=== PATIENT | female | born 1935 | race Caucasian/White ===

== ENCOUNTER → 2018-02-21 15:08 | Outpatient (CLI) | payer MEDICARE, SELFPAY ==
[2018-02-21 18:04] LABS: T4 Total, Thyroxin 4.9 ug/dL (4.8-13.9)
== END ==
PROVIDERS: Family Provider Family Medicine; PCP Family Medicine; Visit Provider Family Medicine
DX: E03.9 Hypothyroidism, unspecified (principal); I26.99 Other pulmonary embolism without acute cor pulmonale
CPT/HCPCS: 36415; 84436; 84443

== ENCOUNTER → 2018-03-26 15:15 | Outpatient (CLI) | payer MEDICARE, SELFPAY ==
[2018-03-26 17:54] LABS: ALB/GLOB Ratio 1.1 RATIO (0.9-2.4); AST(SGOT) 16 U/L (15-37); Alanine Aminotransfer ALT/SGPT 22 U/L (13-56); Albumin, Serum 3.5 g/dL (3.2-5.0); Alkaline Phosphatase 98 U/L (45-117); Anion Gap 7 (5-15); BUN 14 mg/dL (7-18); BUN/Creat Ratio 13.2 RATIO (10-20); Calcium,Total 8.4 mg/dL (8.5-10.1); Chloride 104 mmol/L (98-107); Creatinine, Serum 1.06 mg/dL (0.55-1.02); EST Glomerular Filtration Rate 53 mL/min (>60); Est Glom Filt Rate - Afr Amer 64 mL/min (>60); Globulin 3.3 g/dL (2.2-4.2); Glucose 84 mg/dL (74-106); Potassium 4.4 mmol/L (3.5-5.1); Protein, Total 6.8 g/dL (6.4-8.2); Sodium Level 139 mmol/L (136-145); Thyroid Stim Hormone (TSH) 0.06 uIU/mL (0.358-3.74)
[2018-03-26 17:57] LABS: Absolute Lymphocyte Count 1.35 X10^3/ul (0.83-4.51); Absolute Neutrophil Count 2.6 X10^3/uL (2.0-7.7); Basophil# 0.02 X10^3/uL; Basophil% 0.4 % (0-1); Eosinophil# 0.11 X10^3/uL; Eosinophils% 2.4 % (0-5); Hemoglobin 13.3 g/dl (12.0-15.0); Lymphocyte # 1.35 X10^3/ul (4.0); Mean Corp Hgb Conc 30.9 g/gl (32-36); Mean Corpuscular Volume 87.2 fL (81-99); Mean Platelet Vol. 10.8 fl (6.2-12.0); Monocyte# 0.37 X10^3/uL; Monocyte% 8.2 % (0-10); Neutrophil # 2.62 X10^3/uL (2.7-7.7); Neutrophil % 58.3 % (47-70); Platelet Count 241 K/mm3 (150-450); RBC Distribution Width CV 15.7 % (11.6-14.6); RBC Distribution Width SD 50.5 fl (35.1-43.9); Red Blood Count 4.93 M/mm3 (4.2-5.4); White Blood Count 4.5 K/mm3 (4.4-11.0)
[2018-03-26 18:24] LABS: POSITIVE COUNT NO; POSITIVE DIFFERENTIAL NO; POSITIVE MORPHOLOGY NO
== END ==
PROVIDERS: Family Provider Family Medicine; PCP Family Medicine; Visit Provider Family Medicine
DX: R06.09 Other forms of dyspnea (principal)
CPT/HCPCS: 36415; 80053; 84443; 85025

== ENCOUNTER → 2018-11-01 | Outpatient (CLI) | payer MEDICARE, SELFPAY ==
[2018-11-01 10:04] LABS: Absolute Lymphocyte Count 1.57 X10^3/ul (0.83-4.51); Absolute Neutrophil Count 3.5 X10^3/uL (2.0-7.7); Basophil# 0.03 X10^3/uL; Basophil% 0.5 % (0-1); Eosinophil# 0.14 X10^3/uL; Eosinophils% 2.5 % (0-5); Hematocrit 44.2 % (37-47); Hemoglobin 13.9 g/dl (12.0-15.0); Lymphocyte # 1.57 X10^3/ul (4.0); Lymphocyte % 27.9 % (19-41); Mean Corp Hgb Conc 31.4 g/gl (32-36); Mean Corpuscular Hgb 28.1 pg (27.0-32.0); Mean Corpuscular Volume 89.3 fL (81-99); Mean Platelet Vol. 9.8 fl (6.2-12.0); Monocyte# 0.35 X10^3/uL; Monocyte% 6.2 % (0-10); Neutrophil % 62.4 % (47-70); Platelet Count 192 K/mm3 (150-450); RBC Distribution Width CV 16.4 % (11.6-14.6); RBC Distribution Width SD 53.2 fl (35.1-43.9); Red Blood Count 4.95 M/mm3 (4.2-5.4); White Blood Count 5.6 K/mm3 (4.4-11.0)
[2018-11-01 10:35] LABS: POSITIVE COUNT NO; POSITIVE DIFFERENTIAL NO; POSITIVE MORPHOLOGY NO
[2018-11-01 10:40] LABS: Anion Gap 6 (5-15); BUN 27 mg/dL (7-18); BUN/Creat Ratio 17.5 RATIO (10-20); Calcium,Total 8.6 mg/dL (8.5-10.1); Chloride 100 mmol/L (98-107); Creatinine, Serum 1.54 mg/dL (0.55-1.02); EST Glomerular Filtration Rate 34 mL/min (>60); Est Glom Filt Rate - Afr Amer 41 mL/min (>60); Glucose 112 mg/dL (74-106); Potassium 4.4 mmol/L (3.5-5.1); Sodium Level 136 mmol/L (136-145); T4 Total, Thyroxin 9.6 ug/dL (4.8-13.9)
== END | disposition home or self-care (01) ==
PROVIDERS: Family Provider Family Medicine; PCP Family Medicine; Referring Provider Family Medicine; Visit Provider Family Medicine
DX: I50.9 Heart failure, unspecified (principal); E03.9 Hypothyroidism, unspecified
CPT/HCPCS: 36415; 80048; 84436; 84443; 85025

== ENCOUNTER → 2018-11-06 | Outpatient (CLI) | payer MEDICARE, SELFPAY ==
[2018-11-06 12:26] LABS: Thyroid Stim Hormone (TSH) 6.27 uIU/mL (0.358-3.74)
== END | disposition home or self-care (01) ==
LOC: MFPLAB 09:08
PROVIDERS: Family Provider Family Medicine; PCP Family Medicine; Referring Provider Family Medicine; Visit Provider Family Medicine
DX: E03.9 Hypothyroidism, unspecified (principal)
CPT/HCPCS: 36415; 84443

== ENCOUNTER → 2018-11-30 | Outpatient (CLI) | payer MEDICARE, SELFPAY ==
[2018-11-30 10:24] LABS: International Normalized Ratio 1.2; Prothrombin Time (Protime)PT. 14.5 SECONDS (11.7-14.9)
== END | disposition home or self-care (01) ==
LOC: MFPLAB 09:22
PROVIDERS: Family Provider Family Medicine; PCP Family Medicine; Referring Provider Family Medicine; Visit Provider Family Medicine
DX: I26.99 Other pulmonary embolism without acute cor pulmonale (principal)
CPT/HCPCS: 36415; 85610

== ENCOUNTER → 2019-03-08 | Outpatient (CLI) | payer MEDICARE, SELFPAY ==
[2019-03-08 10:16] LABS: Prothrombin Time (Protime)PT. 36.8 SECONDS (11.7-14.9)
[2019-03-08 10:23] LABS: International Normalized Ratio 3.7
== END | disposition home or self-care (01) ==
LOC: MFPLAB 08:42
PROVIDERS: Family Provider Family Medicine; PCP Family Medicine; Visit Provider Family Medicine
DX: I26.99 Other pulmonary embolism without acute cor pulmonale (principal)
CPT/HCPCS: 36415; 85610

== ENCOUNTER 2019-04-12 10:56 | Inpatient (IN) | payer MEDICARE, SELFPAY ==
[2019-04-12] VITALS (12 sets, daily range): BP systolic 89–138; BP diastolic 65–78; PULSE 92–130; RESP 17–34; TEMP 36.3–36.7; O2SAT 94–98; BMI 22.8; BMI 22.2
--- NOTE | 2019-04-12 11:44 | RAD_ITS ---
STUDY: X-RAY CHEST REASON FOR EXAM: Female, 83 years old. Shortness of breath. TECHNIQUE: PA and lateral views of the chest. COMPARISON: Comparison is made with prior examination dated January 12, 2016. FINDINGS: EKG electrodes are seen. Since prior examination, there has been improved aeration of the lung bases. Residual small bilateral pleural effusions with underlying atelectasis and/or infiltration worse on the left side. Mild degree of vascular congestion. Sternal cerclage wires and vascular clips are present from a prior sternotomy and coronary artery bypass graft procedure (CABG). Normal mediastinum and dalton. Normal visualized pulmonary arteries. There is atherosclerotic calcification of the aortic arch with tortuosity. There are degenerative changes of the visualized thoracic spine. Dextroscoliosis. Normal visualized ribs, clavicles, and shoulders. Small hiatal hernia. RAD/Chest PA and Lateral IMPRESSION: Blunting of both posterior triangles with the bibasilar atelectasis/infiltrates worse on the left side. These have improved since prior study. This is superimposed on mild degree of CHF. Electronically Signed: Arley Hernandez, at 13:19 EST , Service support ,
--- NOTE | 2019-04-12 11:44 | EKG12_ITS ---
Test Reason : SOB Blood Pressure : / mmHG Vent. Rate : 087 BPM Atrial Rate : 087 BPM P-R Int : 184 ms QRS Dur : 092 ms QT Int : 406 ms P-R-T Axes : 056 034 -23 degrees QTc Int : 488 ms Normal sinus rhythm Nonspecific ST- T changes Abnormal ECG Confirmed by BALJIT ROMERO, MATTHEW ([id number]), food editor LUIS GUADARRAMA ([id number]) on 04/14/2019 9:34:03 AM Referred By: Glendy Michelle Confirmed By:ANDRADE SMILEY MD
[2019-04-12 12:16] LABS: Absolute Lymphocyte Count 1.35 X10^3/uL (0.83-4.51); Absolute Neutrophil Count 3.8 X10^3/uL (2.0-7.7); Basophil# 0.03 X10^3/uL; Basophil% 0.5 % (0-1); Eosinophil# 0.07 X10^3/uL; Eosinophils% 1.2 % (0-5); Hemoglobin 12.6 g/dL (12.0-15.0); Lymphocyte # 1.35 X10^3/ul (4.0); Lymphocyte % 23.7 % (19-41); Mean Corp Hgb Conc 31.5 g/dL (32-36); Mean Corpuscular Hgb 27.3 pg (27.0-32.0); Mean Corpuscular Volume 86.6 fL (81-99); Monocyte# 0.37 X10^3/uL; Monocyte% 6.5 % (0-10); NRBC Flagged by Analyzer 0 % (0-5); Neutrophil # 3.84 X10^3/uL (2.7-7.7); Neutrophil % 67.6 % (47-70); Platelet Count 213 K/mm3 (150-450); RBC Distribution Width CV 14.6 % (11.6-14.6); RBC Distribution Width SD 45.6 fl (35.1-43.9); Red Blood Count 4.62 M/mm3 (4.2-5.4); White Blood Count 5.7 K/mm3 (4.4-11.0)
[2019-04-12 12:34] LABS: Anion Gap 10 (5-15); BUN 28 mg/dL (7-18); BUN/Creat Ratio 18.7 RATIO (10-20); Calcium,Total 8.6 mg/dL (8.5-10.1); Chloride 102 mmol/L (98-107); EST Glomerular Filtration Rate 35 mL/min (>60); Est Glom Filt Rate - Afr Amer 43 mL/min (>60); Estimated Creatinine Clearance 25.57 ml/min; Glucose 106 mg/dL (74-106); Potassium 3.7 mmol/L (3.5-5.1); Sodium Level 139 mmol/L (136-145)
[2019-04-12 12:37] LABS: International Normalized Ratio 8.9; Prothrombin Time (Protime)PT. 74.8 SECONDS (11.7-14.9)
--- NOTE | 2019-04-12 12:39 | ED.RN ---
LAB CALLED TO REPORT INR 8.9. DR. LEONEL MCQUEEN PRIMARY NURSE NOTIFIED.
[2019-04-12 12:43] LABS: BNP,B-Type NATRIURETIC PEPTIDE 2263.7 pg/mL (0-100)
--- NOTE | 2019-04-12 12:50 | ED.RN ---
lactic 2.[address] from [address] lab. dr clark aware
[2019-04-12 12:51] LABS: Lactic Acid 2.1 mmol/L (0.4-1.9)
[2019-04-12 16:12] LABS: Reflex Lactate? Y
[2019-04-12] MEDS: Furosemide 20 MG/2 ML VIAL IV (16:20)
--- NOTE | 2019-04-12 16:51 | ED.DCSUM_ITS ---
- ER Visit Summary Date of Service: 04/12/19 Chief Complaint: Shortness of breath History of Present Illness: The patient is a [address] Weathers. 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 She has shortness of breath began approximately 1 week ago. Severe with any ambulation. She denies any change with laying flat. She reports she is not short of breath now. She reports that she has chest pain with deep breaths only. She denies any chest pain with exertion. She does report that her legs have become very swollen over the course the past week as well. Patient also reports that she has had a cough for the past week is productive yellow sputum. She denies any fever or chills. She complains of generalized weakness. Physical Examination: Vitals: An 8.1, 106/69, 107, 34, 98% on room air which is not hypoxic. General: Well-nourished and well-developed. Head: Normocephalic atraumatic. Neck: Supple, no lymphadenopathy. No JVD. Nontender. Cardiovascular: Regular rate and rhythm. 4 out of 6 systolic murmur. Respiratory: No respiratory distress. Crackles at the bases bilaterally. Abdominal: Soft, nontender, nondistended, normal bowel sounds. No guarding, rebound, or peritoneal signs. Back: Nontender. Extremities: Nontender, 2+ pitting edema lower extremes bilaterally. Skin: Normal color, no rash. Neurologic: Alert and oriented ?3. Cranial nerves II through XII are intact. Normal strength and sensation. Psych: Normal affect. Test Results: EKG is sinus at [address] changes. She does have T wave inversion in lead II, V5 and V6. There is no old EKG for comparison. Troponin is negative. 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 INR is 8.9. Chem-7 is marked for BUN 28 creatinine 1.5. CBC is normal. Lactic acid is 2.1. Chest x-ray is read by the radiologist bibasilar atelectasis/infiltrates. Improved from prior study. Mild degree of CHF. In my opinion she has a left pleural effusion. There is atelectasis at the bases from this. She does not have an infiltrate. Emergency Department Course and Treatment: Patient was given a dose of Lasix IV. Her last echocardiogram was in 2013. Unfortunately her blood pressure has been on the low side so she cannot be aggressively diuresed. Treatment Plan: Patient was discussed with Dr. Todd and Dr. Michelle. She will be admitted to the hospital for further evaluation and treatment. Disposition: Admitted in serious condition. Impression: 1. CHF. 2. Pleural effusion on left. 3. Supratherapeutic INR. This note was generated with [employer] dictation software. It may contain incorrect words, spelling, and punctuation that were not noted in review of the chart prior to signing ED Disposition - Plan for ED Patient: Disposition: Acute Care Hospital [facility]
--- NOTE | 2019-04-12 16:58 | HP.PCM_ITS ---
History of Present Illness Date of Admission: 04/12/19 Chief Complaint: shrotness of breath, edema The patient is a 83 year old F with a past medical history as listed. She was admitted through the ED on 04/12/2019 with a complaint of shortness of breath and edema of her lower extremities which have been worsening for the past few days. She had assisted shortness of breath and orthopnea as well as PND. She admits to compliance with her Lasix. She denied any fever or chills, palpitations or dizziness, chest pain, abdominal pain, diarrhea vomiting. Review of systems is otherwise negative. The ED vitals were significant for heart rate of 107 on admission but had come down to 97 at time of review. Respiratory it was also 34 but had come down to 20 subsequently. She was saturating at 94% on room air. Chemistry was significant for creatinine of 1.5 and lactic acid of 2.1. BNP was 2263.7. Initial troponin was negative and CBC was unremarkable. Chest x-ray showed blunting of both posterior triangles with bibasilar atelectasis and infiltrates worse on the right side which have improved since prior study and also superimposed mild CHF. She has been admitted to be managed for acute exacerbation of heart failure. [] Past Medical History Allergies No Known Allergies Allergy (Verified 04/12/19 10:57) Home Medications: Ambulatory Orders Medication Instructions Recorded Acetaminophen [Tylenol Extra 500 mg PO DAILY PRN PRN 04/12/19 Strength] Furosemide [Lasix] 20 mg PO DAILY 04/12/19 Levothyroxine Sodium [Synthroid] 200 mcg PO DAILY 04/12/19 Warfarin Sodium 2 mg PO SUTUTHSA 04/12/19 Warfarin Sodium 3 mg PO MOWEFR 04/12/19 Surgical History: no surgical history Psychiatric History: No pertinent psych hx, Attn. deficit disorder SYSTEMS MECHANIC History: No pertinent SYSTEMS MECHANIC history Lives: Alone Smoking Status: Never smoker Tobacco Use: Non-smoker Alcohol: None Drugs: None - *Family History Maternal History Items: No pertinent history Paternal History Items: No pertinent history Review of Systems Constitutional: Denies: Chills, Fever, Malaise, Weakness, Weight Change Eyes: Reports: Blurred vision - has bilateral macular degeneration HEENT: Denies: Head Aches, Sinus Congestion, Sinus Drainage Cardiovascular: Reports: Edema, Orthopnea, Paroxysmal Noc. Dyspnea. Denies: Chest Pain, Palpitations Respiratory: Reports: Shortness of Breath, Shortness of breath at rest. Denies: Cough, Sputum production, Wheezing Gastrointestinal: Denies: Abdominal Pain, Nausea, Vomiting Genitourinary: Denies: Dysuria Musculoskeletal: Denies: Joint Pain, Joint Tenderness Skin: Denies: Rash, Wounds Neurological: Denies: Numbness, Tingling, Focal weakness Psychiatric: Denies: Anxiety, Depression, Homicidal Ideations, Suicidal Ideations Hematologic/ Lymphatic: Denies: Easy Bruising, Easy Bleeding VTE Information - Inpt Only VTE Present on Admission: No VTE Pharm Prophylaxis ordered?: Yes - Physical Exam Vitals/I&O's: Vital Signs Temp Pulse Resp BP Pulse Ox 98.1 F 96 27 H 89/73 L 94 04/12/19 12:29 04/12/19 16:14 04/12/19 16:14 04/12/19 16:14 04/12/19 16:14 Oxygen Delivery Method Room Air Weight: 133 lb 9.602 oz Body Mass Index (BMI) 22.2 General: Alert, Oriented x3, Cooperative, No apparent distress HEENT: Atraumatic, PERRLA, EOMI, Normocephalic Oral: Moist Mucosa Neck: Supple, No JVD, Negative Carotid Bruits Lungs: - - decreased breath sounds bibasally, no wheezes or crackles. Cardiovascular: Regular rate, Regular Rhythm, Normal S1, Normal S2, - - grade 3 ejection systolic murmur loudest at the aortic region. Abdomen: Bowel Sounds Present, Soft, Non Tender, Non-Distended, No Hepato- splenomegaly Extremities: No clubbing, No cyanosis, Edema - 1+ bipedal edema Skin: No rashes, No breakdown Musculoskeletal: No Tenderness to Palpation of Joints or Extremities Lymphatic: No Cervical, Supraclavicular, or Inguinal Adenopathy Neurological: Cranial nerves II-XII grossly intact, Neuro grossly intact, Motor Exam 5/5 strength throughout Psych/Mental Status: Normal Affect, Appropriate, Alert and oriented to time, place, person, mood and affect Laboratory Results 04/12/19 12:06: WBC 5.7, RBC 4.62, Hgb 12.6, Hct 40.0, MCV 86.6, MCH 27.3, MCHC 31.5 L, RDW Std Deviation 45.6 H, RDW Coeff of [place] 14.6, Plt Count 213, MPV 10.0, Immature Gran % (Auto) 0.500, Neut % (Auto) 67.6, Lymph % (Auto) 23.7, [place] % (Auto) 6.5, Eos % (Auto) 1.2, Baso % (Auto) 0.5, Absolute Neuts (auto) 3.8, Absolute Lymphs (auto) 1.35, Nucleated RBC % 0 04/12/19 12:06: Sodium 139, Potassium 3.7, Chloride 102, Carbon Dioxide 27.0, Anion Gap 10, BUN 28 H, Creatinine 1.50 H, Estim Creat Clear Calc 25.57, Est GFR (MDRD) Af Amer 43 L, Est GFR (MDRD) Non-Af 35 L, BUN/Creatinine Ratio 18.7, Glucose 106, Calcium 8.6, Troponin I 0.017 04/12/19 12:06: Lactic Acid 2.1 H* 04/12/19 12:06: B-Natriuretic Peptide 2263.7 H 04/12/19 12:06: PT 74.8 H, INR 8.9 H* Diagnostic Data Chest X-Ray 04/12/19 11:44 IMPRESSION: Blunting of both posterior triangles with the bibasilar atelectasis/infiltrates worse on the left side. These have improved since prior study. This is superimposed on mild degree of CHF. Electronically Signed: Arley Hernandez, at 13:19 EST , Service support , Current Medications Sodium Chloride () 10 - 40 ml IV UD PRN PRN Reason: SALINE FLUSH Assessment/Plan 83-year-old admitted with a complaint of shortness of breath. 1.; Acute exacerbation of heart failure with preserved EF * admit to PCu with telemetry * BNP is >2000 and chest xray shows blunting of both posterior triangles with bibasilar ateletasis and infiltrates worse on the left side, with superimposed mild CHF * initial troponin is negative. We will cycle. * Diuresed with IV Lasix 40 mg twice daily. * Fluid restriction to 1500 cc daily. * Monitor intake and output chart. * 2D echo(05/03/16); normal left ventricular size with false apical tendon and normal left ventricular systolic function with EF of 65% and no regional wall motion abnormalities noted. Left atrium severely enlarged. 3+ mitral valve insufficiency with aortic sclerosis and no stenosis as well as right ventricular systolic pressure of 47mmhg Transmitral diastolic flow velocity suggested diastolic dysfunction. * Get 2D echo. * 2. Aortic stenosis: * Has 3+ ejection systolic murmur loudest at the aortic region. * Will get 2D echo. Last echo was in 2013 which showed no evidence of aortic stenosis. * Pressure running in the 90s. Be careful with diuresis is prone to drop blood pressure. * consult cardiology once echo confirms severity of aortic stenosis * 3. Supratherapeutic INR: * INR is 8.9. On Coumadin. Unclear of indication for Coumadin; patient is not clear why she is taking coumadin. * Will hold Coumadin. Will give 5 mg of oral vitamin K. * check INR tomorrow; no evidence of bleeding. * 4. Hypothyroidism: On Synthroid. Prophylaxis: Not indicated as INR is supratherapeutic. Status: DNR CCA * Patient and family counseled extensively about different types of CODE STATUS including full code, DNR CCA and DNR CCA. Patient elects to be DNRCCA. Total [id number] time 16 minutes. . Code Visit Inpatient E&M: 87347 Init Hosp L3 Procedures: 19040 Advncd Care Plan 30 Min
[2019-04-12] MEDS: 0.9% Saline Lock 10 ML Syringe IV (17:55)
[2019-04-12] MEDS: Phytonadione (Vit K1) 5 MG TABLET PO (17:55)
[2019-04-12] MEDS: Furosemide 40 MG/4 ML Vial IV (17:55)
[2019-04-12 18:27] LABS: Lactic Acid 1.8 mmol/L (0.4-1.9)
[2019-04-13] VITALS (19 sets, daily range): BP systolic 90–103; BP diastolic 62–85; PULSE 88–137; RESP 20–30; TEMP 36.4–37.3; O2SAT 94–100
[2019-04-13 00:46] LABS: Bedside Glucose 114 mg/dL (70-110)
[2019-04-13] MEDS: Levothyroxine 100 MCG Tablet 200 MCG PO (05:52)
--- NOTE | 2019-04-13 05:55 | ECHOD_ITS ---
Reason For Study: CHF Procedure This was a 2D Doppler, Color Flow transthoracic echocardiogram. Exam performed portable in patient room. Left Ventricle Normal LV size. Concentric left ventricular hypertrophy. The estimated ejection fraction is 65-70 %. Unable to assess diastolic dysfunction. No regional wall motion abnormalities noted. Right Ventricle Mildly dilated right ventricle. Moderate global right ventricular systolic dysfunction. Atria The left atrium is severely enlarged. Normal right atrium. No doppler evidence for ASD. Mitral Valve There is severe mitral annular calcification. Moderate mitral valve prolapse, posterior leaflet. There is flail of the posterior leaflet of the mitral valve with possible rupture of the chordae. Mild-Moderate mitral valve stenosis. Severe (4+) mitral valve insufficiency. Tricuspid Valve There is no tricuspid stenosis. Mild tricuspid valve insufficiency. Pulmonary artery systolic pressure is 75 mmHg. Aortic Valve Trisinus/trileaflet aortic valve. Moderate diffuse aortic valve thickening. possible severe aortic stenosis by doppler. No aortic valve insufficiency. Pulmonic Valve There is no pulmonic valvular stenosis. Mild (1+) pulmonic valve insufficiency. Great Vessels Normal aortic root. Pericardium/Pleural No pericardial effusion. MMode/2D Measurements & Calculations LVIDd: 5.0 cm IVSd: 1.4 cm LVOT diam: 2.0 cm LVIDs: 2.8 cm LVPWd: 1.4 cm LVOT area: 3.2 cm2 RVDd: 4.8 cm FS: 43.4 % Ao root diam: 3.6 cm LAV(MOD-bp): 112.0 ml LVAd ap4: 27.1 cm2 LAV(MOD-bp) Indexed: 68.0 ml/m2 EDV(MOD-sp4): 82.9 ml LAV(MOD-sp2): 145.3 ml EDV(sp4-el): 87.7 ml LAV(MOD-sp4): 93.4 ml LVAs ap4: 14.9 cm2 ESV(MOD-sp4): 31.0 ml ESV(sp4-el): 30.9 ml EF(MOD-sp4): 62.5 % EF(sp4-el): 64.8 % SV(MOD-sp4): 51.8 ml SV(sp4-el): 56.8 ml Aortic Valve Planimetry: 0.73 cm2 LA A4 area: 28.8 cm2 LA dimension(2D): 6.1 cm RA A4 area: 13.5 cm2 Time Measurements MV dec time: 0.18 sec Doppler Measurements & Calculations MV E max marylu: 160.6 cm/sec MV V2 max: 214.7 cm/sec Ao V2 max: 435.1 cm/sec MV A max marylu: 81.7 cm/sec MV max P.5 mmHg Ao max P.1 mmHg MV E/A: 2.0 MV V2 mean: 107.6 cm/sec Ao V2 mean: 295.7 cm/sec MV mean P.8 mmHg Ao mean P.7 mmHg MV V2 VTI: 40.2 cm Ao V2 VTI: 79.4 cm MVA(VTI): 1.1 cm2 KAEL(I,D): 0.54 cm2 KAEL(V,D): 0.59 cm2 LV V1 max: 80.8 cm/sec SV(LVOT): 43.2 ml PA V2 max: 196.4 cm/sec LV V1 max P.6 mmHg LV V1 mean P.5 mmHg LV V1 mean: 57.4 cm/sec LV V1 VTI: 13.6 cm TR max marylu: 420.8 cm/sec MV P1/2t-pr_phl: 58.6 msec TR max P.6 mmHg Interpretation Summary The estimated ejection fraction is 65-70 %. Unable to assess diastolic dysfunction. Mildly dilated right ventricle. Moderate global right ventricular systolic dysfunction. The left atrium is severely enlarged. Mild-Moderate mitral valve stenosis. Severe (4+) mitral valve insufficiency. Moderate mitral valve prolapse, posterior leaflet There is flail of the posterior leaflet of the mitral valve with possible rupture of the chordae There is severe mitral annular calcification. Mild tricuspid valve insufficiency. Pulmonary artery systolic pressure is 75 mmHg. Moderate diffuse aortic valve thickening. possible severe aortic stenosis by doppler. Ordering Physician: Glendy Michelle Referring Physician: ELMER GLORIA Performed By: Sharon Fitzpatrick, YANELISCS, RVT
[2019-04-13 06:55] LABS: Bedside Glucose 119 mg/dL (70-110)
[2019-04-13 07:11] LABS: Absolute Lymphocyte Count 1.24 X10^3/uL (0.83-4.51); Basophil# 0.03 X10^3/uL; Basophil% 0.5 % (0-1); Eosinophil# 0.12 X10^3/uL; Eosinophils% 2.1 % (0-5); Hematocrit 40.8 % (37-47); Hemoglobin 12.9 g/dL (12.0-15.0); Lymphocyte # 1.24 X10^3/ul (4.0); Lymphocyte % 21.2 % (19-41); Mean Corp Hgb Conc 31.6 g/dL (32-36); Mean Corpuscular Hgb 27.3 pg (27.0-32.0); Mean Corpuscular Volume 86.3 fL (81-99); Mean Platelet Vol. 10.2 fl (6.2-12.0); Monocyte# 0.44 X10^3/uL; Monocyte% 7.5 % (0-10); NRBC Flagged by Analyzer 0 % (0-5); Neutrophil # 3.98 X10^3/uL (2.7-7.7); Neutrophil % 68.2 % (47-70); Platelet Count 223 K/mm3 (150-450); RBC Distribution Width CV 14.6 % (11.6-14.6); RBC Distribution Width SD 45.7 fl (35.1-43.9); Red Blood Count 4.73 M/mm3 (4.2-5.4); White Blood Count 5.8 K/mm3 (4.4-11.0)
[2019-04-13 07:23] LABS: International Normalized Ratio 3.4; Prothrombin Time (Protime)PT. 34.9 SECONDS (11.7-14.9)
[2019-04-13 07:27] LABS: Anion Gap 7 (5-15); BUN 29 mg/dL (7-18); Calcium,Total 8.2 mg/dL (8.5-10.1); Chloride 99 mmol/L (98-107); Creatinine, Serum 1.53 mg/dL (0.55-1.02); EST Glomerular Filtration Rate 34 mL/min (>60); Est Glom Filt Rate - Afr Amer 42 mL/min (>60); Estimated Creatinine Clearance 25.07 ml/min; Glucose 105 mg/dL (74-106); Potassium 3.2 mmol/L (3.5-5.1); Sodium Level 136 mmol/L (136-145)
[2019-04-13] MEDS: 0.9% Saline Lock 10 ML Syringe IV ×2 (07:44→18:14)
[2019-04-13 07:46] LABS: Magnesium 2.3 mg/dL (1.6-2.6); Thyroid Stim Hormone (TSH) 0.12 uIU/mL (0.358-3.74)
[2019-04-13 09:27] LABS: T4 Free Direct 2.58 ng/dL (0.76-1.46)
--- NOTE | 2019-04-13 10:47 | PN_ITS ---
Subjective: Patient seen and examined. Shortness of breath and lower extremity swelling improved. Patient denies current complaints. - Physical Exam Vitals/I&O's: Vital Signs Temp Pulse Resp BP Pulse Ox 97.6 F L 105 H 24 H 97/70 96 04/13/19 10:32 04/13/19 10:32 04/13/19 10:32 04/13/19 10:32 04/13/19 10:32 Oxygen Delivery Method Room Air Weight: 130 lb 1.164 oz Body Mass Index (BMI) 22.2 Intake and Output for Last 24 Hours 04/11/19 04/12/19 04/13/19 23:59 23:59 23:59 Intake Total 120 / 120 Output Total 1600 / 1600 Balance -1480 / -1480 General: Alert, Oriented x3, Cooperative HEENT: Atraumatic, PERRLA, EOMI, Normocephalic Neck: Supple, No JVD, Negative Carotid Bruits Lungs: Clear to auscultation, Diminished Cardiovascular: Regular rate, Regular Rhythm, Normal S1, Normal S2, Murmur Abdomen: Bowel Sounds Present, Soft, Non Tender, Non-Distended Extremities: No clubbing, No cyanosis, Edema - Bilateral lower extremity, nonpitting Skin: No rashes, No breakdown Musculoskeletal: No Tenderness to Palpation of Joints or Extremities Neurological: Cranial nerves II-XII grossly intact, Neuro grossly intact Psych/Mental Status: Normal Affect, Appropriate Laboratory Results 04/12/19 12:06: WBC 5.7, RBC 4.62, Hgb 12.6, Hct 40.0, MCV 86.6, MCH 27.3, MCHC 31.5 L, RDW Std Deviation 45.6 H, RDW Coeff of [place] 14.6, Plt Count 213, MPV 10.0, Immature Gran % (Auto) 0.500, Neut % (Auto) 67.6, Lymph % (Auto) 23.7, [place] % (Auto) 6.5, Eos % (Auto) 1.2, Baso % (Auto) 0.5, Absolute Neuts (auto) 3.8, Absolute Lymphs (auto) 1.35, Nucleated RBC % 0 04/12/19 12:06: Sodium 139, Potassium 3.7, Chloride 102, Carbon Dioxide 27.0, Anion Gap 10, BUN 28 H, Creatinine 1.50 H, Estim Creat Clear Calc 25.57, Est GFR (MDRD) Af Amer 43 L, Est GFR (MDRD) Non-Af 35 L, BUN/Creatinine Ratio 18.7, Glucose 106, Calcium 8.6, Troponin I 0.017 04/12/19 12:06: Lactic Acid 2.1 H* 04/12/19 12:06: B-Natriuretic Peptide 2263.7 H 04/12/19 12:06: PT 74.8 H, INR 8.9 H* 04/12/19 17:40: Lactic Acid 1.8 04/12/19 17:40: Troponin I 0.015 04/12/19 21:41: POC Glucose 114 H 04/12/19 23:35: Troponin I < 0.015 04/13/19 06:33: WBC 5.8, RBC 4.73, Hgb 12.9, Hct 40.8, MCV 86.3, MCH 27.3, MCHC 31.6 L, RDW Std Deviation 45.7 H, RDW Coeff of [place] 14.6, Plt Count 223, MPV 10.2, Immature Gran % (Auto) 0.500, Neut % (Auto) 68.2, Lymph % (Auto) 21.2, [place] % (Auto) 7.5, Eos % (Auto) 2.1, Baso % (Auto) 0.5, Absolute Neuts (auto) 4.0, Absolute Lymphs (auto) 1.24, Nucleated RBC % 0 04/13/19 06:33: Sodium 136, Potassium 3.2 L, Chloride 99, Carbon Dioxide 30.0, Anion Gap 7, BUN 29 H, Creatinine 1.53 H, Estim Creat Clear Calc 25.07, Est GFR (MDRD) Af Amer 42 L, Est GFR (MDRD) Non-Af 34 L, BUN/Creatinine Ratio 19.0, Glucose 105, Calcium 8.2 L 04/13/19 06:33: PT 34.9 H, INR 3.4 04/13/19 06:33: Magnesium 2.3, TSH 0.12 L 04/13/19 06:33: Free T4 2.58 H 04/13/19 06:40: POC Glucose 119 H Current Medications Acetaminophen (Tylenol) 500 mg PO DAILY PRN PRN PRN Reason: Pain Score 1-10/10 Albuterol Sulfate (Ventolin Aerosols) 2.5 mg INHALATION Q2H PRN PRN PRN Reason: SOB/Wheezing Dextrose (D50w Syringe) 0 gm IV X1 PRN; Protocol PRN Reason: Hypoglycemia Furosemide (Lasix) 40 mg IV BIDLX [facility] Last Admin: 04/13/19 10:45 Dose: Not Given Documented by: Glucagon () 1 mg IM .X1 PRN PRN Reason: Hypoglycemia Levothyroxine Sodium (Synthroid) 200 mcg PO DAILY@0600 [facility] Last Admin: 04/13/19 05:52 Dose: 200 mcg Documented by: Ondansetron HCl (Zofran) 4 mg IV Q8H PRN PRN PRN Reason: NAUSEA/VOMITING Sodium Chloride () 10 - 40 ml IV UD PRN PRN Reason: SALINE FLUSH Last Admin: 04/13/19 07:44 Dose: 10 ml Documented by: Medical Necessity - Tobacco Use Smoking Status: Never smoker Tobacco Use: Non-smoker Assessment/Plan 1. Acute diastolic CHF-BNP 2263. Chest x-ray demonstrates mild CHF. Oxygen stable on room air. IV Lasix 40 mg daily. Strict I&O. Daily weight. Prior echocardiogram April 2016 demonstrated an EF of 65%, moderate to severe mitral annular calcification. Repeat echo pending. Walking pulse ox prior to discharge. PT/OT. CM consult for discharge needs. 2. Supratherapeutic INR-INR 8.9 on admission. Vitamin K 5 mg p.o. x1. INR 3.4 today. It appears patient is taking Coumadin for history of PE however history and timeline of this is unclear. Will obtain records from PCP. 3. Hypothyroidism-TSH 0.12. Free T4 2.5. Reduce home Synthroid regimen from 200 mcg to 150 mcg daily. Recommend repeat lab in 4 to 6 weeks. DVT prophylaxis-Coumadin CODE STATUS: DNR CCA, no intubation. This patient was seen by ANAND Burns under the supervision of Dr. Pacheco.
--- NOTE | 2019-04-13 12:43 | NURSING ---
This nurse reviewed charting of SN Andressa
--- NOTE | 2019-04-13 12:46 | NURSING ---
pt. in bed with family in room. bed alarm is on. pt states they do not need anything. reported all of this to nurse and told her i am leaving the floor.
--- NOTE | 2019-04-13 16:05 | RAD_ITS ---
STUDY: X-RAY CHEST REASON FOR EXAM: Female, 83 years old. SOB TECHNIQUE: Single frontal view of the chest. COMPARISON: Prior day. FINDINGS: Cardiac silhouette unremarkable. Pulmonary vascularity unremarkable. Aorta unremarkable. Possible calcified pulmonary nodule right base. No focal consolidation. Interval improvement in left basilar opacity. Upper abdomen unremarkable. Osseous structures intact. No pneumothorax. RAD/Chest 1 View (Portable) IMPRESSION: Interval improvement in left basilar opacity. Persistent opacity likely represents a small effusion/atelectasis. Possible right basilar nodule. Further assessment with a chest CT if clinically indicated. Electronically Signed: Durga Murcia, at 18:38 EST Tel , Service support ,
[2019-04-13 16:41] LABS: Base Excess 4 mmol/L (-2 to +2); Bicarbonate 26.5 mmol/L (22-26); Blood Gas Specimen Type ART; O2 Delivery Device Room Air; PO2 59 mmHG (75-100); SITE L Brachial; SO2 93 % (95-99); Time Given 1640; Total Carbon Dioxide 27 mmol/L; pCO2 31.2 mmHg (35-45); pH 7.54 (7.35-7.45)
[2019-04-14 03:00] VITALS: PULSE 92
[2019-04-14 04:20] VITALS: BP 115/71; PULSE 91; RESP 18; TEMP 36.4; O2SAT 98
[2019-04-14] MEDS: Levothyroxine 150 MCG Tablet PO (05:48)
[2019-04-14 06:46] VITALS: PULSE 99
[2019-04-14 07:09] LABS: Absolute Lymphocyte Count 1.12 X10^3/uL (0.83-4.51); Absolute Neutrophil Count 4.4 X10^3/uL (2.0-7.7); Basophil# 0.03 X10^3/uL; Basophil% 0.5 % (0-1); Eosinophil# 0.09 X10^3/uL; Eosinophils% 1.5 % (0-5); Hematocrit 38.6 % (37-47); Hemoglobin 12.3 g/dL (12.0-15.0); Lymphocyte # 1.12 X10^3/ul (4.0); Lymphocyte % 18.5 % (19-41); Mean Corp Hgb Conc 31.9 g/dL (32-36); Mean Corpuscular Hgb 27.5 pg (27.0-32.0); Mean Corpuscular Volume 86.4 fL (81-99); Mean Platelet Vol. 10.2 fl (6.2-12.0); Monocyte# 0.41 X10^3/uL; Monocyte% 6.8 % (0-10); NRBC Flagged by Analyzer 0 % (0-5); Neutrophil # 4.37 X10^3/uL (2.7-7.7); Neutrophil % 72.4 % (47-70); Platelet Count 198 K/mm3 (150-450); RBC Distribution Width CV 14.4 % (11.6-14.6); RBC Distribution Width SD 44.6 fl (35.1-43.9); Red Blood Count 4.47 M/mm3 (4.2-5.4)
[2019-04-14 07:20] LABS: International Normalized Ratio 2.1; Prothrombin Time (Protime)PT. 23.9 SECONDS (11.7-14.9)
[2019-04-14 07:26] LABS: Anion Gap 5 (5-15); BUN 31 mg/dL (7-18); Calcium,Total 8.2 mg/dL (8.5-10.1); Chloride 102 mmol/L (98-107); Creatinine, Serum 1.35 mg/dL (0.55-1.02); EST Glomerular Filtration Rate 40 mL/min (>60); Est Glom Filt Rate - Afr Amer 48 mL/min (>60); Estimated Creatinine Clearance 28.41 ml/min; Glucose 109 mg/dL (74-106); Potassium 3.9 mmol/L (3.5-5.1); Sodium Level 137 mmol/L (136-145)
[2019-04-14 10:20] VITALS: BP 103/78; PULSE 102; RESP 20; TEMP 36.4; O2SAT 98
[2019-04-14] MEDS: Furosemide 20 MG Tablet PO (10:33)
[2019-04-14] MEDS: 0.9% Saline Lock 10 ML Syringe IV (10:34)
--- NOTE | 2019-04-14 11:48 | DCINST_ITS ---
- Discharge Diagnoses Current Active Problems: Acute diastolic CHF Supratherapeutic INR Severe aortic stenosis Hypothyroidism with iatrogenic hyperthyroidism You will use the following diet at home:: Cardiac Discharge Activity: Return to Normal Activity Call your doctor if you observe: Shortness of breath, Dizziness, Fainting spells, Chest pain Additional Instructions: He will need INR completed by primary care physician within 1 week. Report weight gain greater than 5 pounds or increased dyspnea, swelling to cardiology right away. [facility] and Home Health/PT/OT to be set up at discharge. Allergies/Adverse Reactions: Allergies No Known Allergies Allergy (Verified 04/12/19 10:57) Medications to take at Discharge Acetaminophen [Tylenol] 500 mg PO DAILY PRN PRN 04/12/19 Furosemide [Lasix] 20 mg PO DAILY 04/12/19 Levothyroxine [Synthroid] 150 mcg PO DAILY@0600 #30 tab 04/14/19 Warfarin [Coumadin] 2 mg PO DAILY@1700 #30 tab 04/14/19 The following prescriptions were given: Warfarin [Coumadin] 2 mg PO DAILY@1700 #30 tab Transmission Status: Pending to [id number] Levothyroxine [Synthroid] 150 mcg PO DAILY@0600 #30 tab Transmission Status: Pending to [id number] Primary Care Physician: Nancy Weathers MD [Primary Care Provider] - Please follow up with your Primary Care Physician in: 3-5 days Test Results: Test results from this visit will be discussed in further detail at your follow- up appointment, if applicable. Please Follow Up With: Chung Todd MD When: 1-2 Weeks, may see CLOTHES MODEL/PA Proposed Discharge Date: 04/14/19
--- NOTE | 2019-04-14 11:53 | PCM.DC.SUM ---
Discharge Date and Diagnosis Date of Admission: 04/12/19 Date of Discharge: 04/14/19 - Primary Discharge Diagnosis 1. Acute diastolic CHF 2. Severe aortic stenosis 3. Supratherapeutic INR 4. Hypothyroidism with iatrogenic hyperthyroidism 5. Chronic kidney disease stage III Hospital Course and Treatment Imaging Results: Diagnostic Data Chest X-Ray 04/13/19 16:05 IMPRESSION: Interval improvement in left basilar opacity. Persistent opacity likely represents a small effusion/atelectasis. Possible right basilar nodule. Further assessment with a chest CT if clinically indicated. Electronically Signed: Durga Divina, at 18:38 EST Tel , Service support , Dr. Todd- Cardiology Operations: None Procedures: 2-D Echocardiogram Summary of Care Provided: The patient is a 83 year old F admitted 04/12/2019 due to shortness of breath, edema. 1. Acute diastolic CHF-BNP 2263. Chest x-ray demonstrates mild CHF. Oxygen stable on room air. Prior echocardiogram April 2016 demonstrated an EF of 65%, moderate to severe mitral annular calcification. Repeat echo demonstrated EF 65 to 70%, severe aortic stenosis, PA pressure 75 mmHg, severe mitral valve insufficiency, moderate mitral valve prolapse, moderate global right ventricular systolic dysfunction. Walking pulse ox completed prior to discharge and patient did not require supplemental oxygen at rest or with ambulation. IV Lasix during admission. Discharge on Lasix 20 mg p.o. daily. Instructed patient if she has increased dyspnea, swelling or greater than 5 pound weight gain to notify cardiology immediately. Follow-up with primary care physician in 3 to 5 days. Follow-up with cardiology within 1 week. 2. Severe aortic stenosis-echocardiogram demonstrated EF 65 to 70%, severe aortic stenosis, PA pressure 75 mmHg, severe mitral valve insufficiency, moderate mitral valve prolapse, moderate global right ventricular systolic dysfunction. Cardiology consult prior to discharge, continue close outpatient follow-up. 3. Supratherapeutic INR-INR 8.9 on admission. P.o. vitamin K x1. INR at discharge 2.1. Patient unclear on home dosing of Coumadin. We will continue Coumadin 2 mg daily at discharge with repeat INR within 1 week, to be followed by primary care provider. After discussing with patient and daughter, it is still unclear why patient is on Coumadin. Daughter reports history of heart surgery complicated by PE. Unable to obtain PCP records as office not open over the weekend. Discussed with family discontinuing Coumadin however daughter is not agreeable to this. Given patient's severe macular degeneration and fall risk, feel this should be further evaluated as outpatient by PCP and cardiology. 4. Hypothyroidism with iatrogenic hyperthyroidism-TSH 0.12. Free T4 2.5. Reduce home Synthroid regimen from 200 mcg to 150 mcg daily. Recommend repeat lab in 4 to 6 weeks. 5. Chronic kidney disease stage III-at baseline. 6. Severe macular degeneration/poor eyesight-causes difficulty with medication administration. Plan to set up community care network and home health at discharge for assistance. General: Alert, Oriented x3, Cooperative HEENT: Atraumatic, PERRLA, EOMI, Normocephalic Neck: Supple, No JVD, Negative Carotid Bruits Lungs: Clear to auscultation, Diminished Cardiovascular: Regular rate, Regular Rhythm, Normal S1, Normal S2, Murmur Abdomen: Bowel Sounds Present, Soft, Non Tender, Non-Distended Extremities: No clubbing, No cyanosis, Edema - Bilateral lower extremity, nonpitting Skin: No rashes, No breakdown Musculoskeletal: No Tenderness to Palpation of Joints or Extremities Neurological: Cranial nerves II-XII grossly intact, Neuro grossly intact Psych/Mental Status: Normal Affect, Appropriate CODE STATUS: DNR CCA, no intubation. This patient was seen by ANAND Burns under the supervision of Dr. Pacheco. - Physical Exam Vitals/I&O's: Vital Signs Temp Pulse Resp BP Pulse Ox 97.5 F L 102 H 20 H 103/78 98 04/14/19 10:20 04/14/19 10:20 04/14/19 10:20 04/14/19 10:20 04/14/19 10:20 Oxygen Flow Rate (L/min) 2 Oxygen Delivery Method Nasal Cannula Weight: 132 lb 11.492 oz Body Mass Index (BMI) 22.2 Intake and Output for Last 24 Hours 04/12/19 04/13/19 04/14/19 23:59 23:59 23:59 Intake Total 120 / 120 830 / 830 120 / 120 Output Total 1600 / 1600 100 / 100 Balance -1480 / -1480 730 / 730 120 / 120 Laboratory Results 04/13/19 16:37: Specimen Type ART, Sample Site L Brachial, pH 7.54 H, Bicarbonate Actual 26.5 H, POC Total CO2 27, Base Excess 4 H, O2 Saturation 93 L, ABG pCO2 31.2 L, ABG pO2 59 L, Vance Test NA, O2 Delivery Device Room Air, Blood Gas Notified Whom RN, Blood Gas Notified Time 1640 04/14/19 06:45: WBC 6.0, RBC 4.47, Hgb 12.3, Hct 38.6, MCV 86.4, MCH 27.5, MCHC 31.9 L, RDW Std Deviation 44.6 H, RDW Coeff of [place] 14.4, Plt Count 198, MPV 10.2, Immature Gran % (Auto) 0.300, Neut % (Auto) 72.4 H, Lymph % (Auto) 18.5 L, [place] % (Auto) 6.8, Eos % (Auto) 1.5, Baso % (Auto) 0.5, Absolute Neuts (auto) 4.4, Absolute Lymphs (auto) 1.12, Nucleated RBC % 0 04/14/19 06:45: PT 23.9 H, INR 2.1 04/14/19 06:45: Sodium 137, Potassium 3.9, Chloride 102, Carbon Dioxide 30.0, Anion Gap 5, BUN 31 H, Creatinine 1.35 H, Estim Creat Clear Calc 28.41, Est GFR (MDRD) Af Amer 48 L, Est GFR (MDRD) Non-Af 40 L, BUN/Creatinine Ratio 23.0 H, Glucose 109 H, Calcium 8.2 L Current Medications Acetaminophen (Tylenol) 500 mg PO DAILY PRN PRN PRN Reason: Pain Score 1-10/10 Albuterol Sulfate (Ventolin Aerosols) 2.5 mg INHALATION Q2H PRN PRN PRN Reason: SOB/Wheezing Dextrose (D50w Syringe) 0 gm IV X1 PRN; Protocol PRN Reason: Hypoglycemia Furosemide (Lasix) 20 mg PO DAILY [facility] Last Admin: 04/14/19 10:33 Dose: 20 mg Documented by: Glucagon () 1 mg IM .X1 PRN PRN Reason: Hypoglycemia Levothyroxine Sodium (Synthroid) 150 mcg PO DAILY@0600 [facility] Last Admin: 04/14/19 05:48 Dose: 150 mcg Documented by: Ondansetron HCl (Zofran) 4 mg IV Q8H PRN PRN PRN Reason: NAUSEA/VOMITING Sodium Chloride () 10 - 40 ml IV UD PRN PRN Reason: SALINE FLUSH Last Admin: 04/14/19 10:34 Dose: 10 ml Documented by: Warfarin Sodium (Coumadin (Pbkc)) 2 mg PO DAILY@1700 OG Home Medications: Medications to take at Discharge Acetaminophen [Tylenol] 500 mg PO DAILY PRN PRN 04/12/19 Furosemide [Lasix] 20 mg PO DAILY 04/12/19 Levothyroxine [Synthroid] 150 mcg PO DAILY@0600 #30 tab 04/14/19 Warfarin [Coumadin] 2 mg PO DAILY@1700 #30 tab 04/14/19 Following Prescrptions Were Given to Patient: Warfarin [Coumadin] 2 mg PO DAILY@1700 #30 tab Transmission Status: Pending to [id number] Levothyroxine [Synthroid] 150 mcg PO DAILY@0600 #30 tab Transmission Status: Pending to [id number] Primary Care Physician: Nancy Weathers MD [Primary Care Provider] - Please follow up with your Primary Care Physician in: 3-5 days Please Follow Up With: Chung Todd MD When: 1-2 Weeks, may see HAND STAPLER/PA Disposition: Home with Home Health Minutes spent on discharge:: 35 Patient Condition:: Stable Medical Necessity - Tobacco Use Smoking Status: Never smoker Tobacco Use: Non-smoker Meaningful Use Info Meaningful Use Diagnoses (Choose all that apply): CHF - CHF LAVON/ARB ordered at discharge?: No Reason LAVON/ARB not ordered?: Severe aortic stenosis Documented LVEF (%): 65
--- NOTE | 2019-04-14 15:31 | CON.PCM_ITS ---
Reason for Consult Date of Consultation: 04/14/19 Reason for Consultation: Attic stenosis, mitral regurgitation, congestive heart failure History of Present Illness: The patient is a 83 year old F with a past medical history as listed. She was admitted through the ED on 04/12/2019 with a complaint of shortness of breath and edema of her lower extremities which have been worsening for the past few days. She had assisted shortness of breath and orthopnea as well as PND. Patient was supposed to be on Lasix at home but is unclear how much she was taking and if she was compliant. She was started on Lasix in the hospital and responded very well to that. She says her breathing is back to her baseline. Review of systems: All else is negative except that in the HPI. All systems reviewed. Past Medical History Allergies/Adverse Reactions: Allergies No Known Allergies Allergy (Verified 04/12/19 10:57) Home Medications: Ambulatory Orders Medication Instructions Recorded Acetaminophen [Tylenol] 500 mg PO DAILY PRN PRN 04/12/19 Furosemide [Lasix] 20 mg PO DAILY 04/12/19 Levothyroxine [Synthroid] 150 mcg PO DAILY@0600 #30 tab 04/14/19 Warfarin [Coumadin] 2 mg PO DAILY@1700 #30 tab 04/14/19 Surgical History: no surgical history Psychiatric History: No pertinent psych hx, Attn. deficit disorder [employer] History: No pertinent [employer] history - *Family History Maternal History Items: No pertinent history Paternal History Items: No pertinent history Lives: Alone Smoking Status: Never smoker Tobacco Use: Non-smoker Alcohol: None Drugs: None Objective: Vital Signs Temp Pulse Resp BP Pulse Ox 97.5 F L 102 H 20 H 103/78 98 04/14/19 10:20 04/14/19 10:20 04/14/19 10:20 04/14/19 10:20 04/14/19 10:20 Oxygen Flow Rate (L/min) 2 Oxygen Delivery Method Nasal Cannula Weight: 132 lb 11.492 oz Body Mass Index (BMI) 22.2 Intake and Output for Last 24 Hours 04/12/19 04/13/19 04/14/19 23:59 23:59 23:59 Intake Total 120 / 120 830 / 830 360 / 360 Output Total 1600 / 1600 100 / 100 100 / 100 Balance -1480 / -1480 730 / 730 260 / 260 General: Awake, Alert, Oriented x 3 Oral: Moist Mucosa Neck: Supple Lungs: Clear to auscultation Cardiovascular: Regular Rhythm Abdomen: Soft - Pansystolic murmur heard throughout the precordium. Extremities: No edema Skin: No Rashes Psych/Mental Status: Appropriate 04/13/19 16:37: pH 7.54 H, Bicarbonate Actual 26.5 H, POC Total CO2 27, Base Excess 4 H, O2 Saturation 93 L, ABG pCO2 31.2 L, ABG pO2 59 L, Vance Test NA 04/14/19 06:45: WBC 6.0, RBC 4.47, Hgb 12.3, Hct 38.6, MCV 86.4, MCH 27.5, MCHC 31.9 L, Plt Count 198, MPV 10.2, Immature Gran % (Auto) 0.300, Neut % (Auto) 72.4 H, Lymph % (Auto) 18.5 L, [place] % (Auto) 6.8, Eos % (Auto) 1.5, Baso % (Auto) 0.5, Absolute Neuts (auto) 4.4, Nucleated RBC % 0 04/14/19 06:45: PT 23.9 H, INR 2.1 04/14/19 06:45: Sodium 137, Potassium 3.9, Chloride 102, Carbon Dioxide 30.0, Anion Gap 5, BUN 31 H, Creatinine 1.35 H, Est GFR (MDRD) Af Amer 48 L, Est GFR (MDRD) Non-Af 40 L, BUN/Creatinine Ratio 23.0 H, Glucose 109 H, Calcium 8.2 L Rhythm: EKG: ECHO: Stress Test: Cardiac Cath: PCI: CT Surgery: Holter monitor: EPS: PPM: CXR: Chest CT Scan: Assessment/Plan 1. CHF: Patient has responded well to current medications. It is unclear what she was taking at home. It will be reasonable to discharge the patient home on current regimen. He has preserved EF. Her CHF is likely from her valve disorders. 2. Severe aortic stenosis: Patient will likely need AVR probably TAVR. Discussed this with the patient. She will think about it and let us know when she follows up with us in the office. 3. Severe mitral regurgitation: She will need referral to a tertiary center for this as well. If patient is willing to consider surgical options or percutaneous options then we will likely proceed with coronary angiography and then refer her to [facility] for evaluation.
--- NOTE | 2019-04-15 09:29 | CASEMGMT ---
Call to Natalie at [facility] and she is aware of referral from the weekend and states will call daughter, Patrica, to set up [facility]. A referral was also sent for CCN previously and Bryant at [facility] is aware of referral at this time, voices understanding. Jamshid MUHAMMAD CM
== END 2019-04-14 14:50 | disposition home or self-care (01) | DRG 293 ==
LOC: ED 12:00 → PCU 16:34
PROVIDERS: Admitting Provider Student in an Organized Health Care Education/Training Program; Emergency Provider Emergency Medicine; Family Provider Family Medicine; PCP Family Medicine; Referring Provider Student in an Organized Health Care Education/Training Program; Visit Provider Family Medicine
DX: I50.33 Acute on chronic diastolic (congestive) heart failure (principal); R79.1 Abnormal coagulation profile; Z79.01 Long term (current) use of anticoagulants; E03.9 Hypothyroidism, unspecified; Z66 Do not resuscitate; E87.6 Hypokalemia; I08.0 Rheumatic disorders of both mitral and aortic valves; N18.3 Chronic kidney disease, stage 3 (moderate); H35.30 Unspecified macular degeneration
CPT/HCPCS: 36415; 36600; 71045; 71046; 80048; 82803; 82962; 83605; 83735; 83880; 84439; 84443; 84484; 85025; 85610; 87040; 93005; 93306; 97161; 97165; 97802; 99285; J7050; A4216; J1940

== ENCOUNTER 2019-04-25 14:45 | Inpatient (IN) | payer MEDICARE, SELFPAY ==
[2019-04-12 16:49] VITALS: BMI 22.2
[2019-04-25] VITALS (15 sets, daily range): BP systolic 92–132; BP diastolic 57–79; PULSE 99–121; RESP 18–37; TEMP 36.4–37.4; O2SAT 92–99; BMI 21.4; BMI 21.7
--- NOTE | 2019-04-25 15:04 | RAD_ITS ---
STUDY: X-RAY CHEST REASON FOR EXAM: Female, 83 years old. Cough and shortness of breath. TECHNIQUE: Single AP portable view of the chest. COMPARISON: Comparison is made with prior examination dated April 13, 2019. FINDINGS: EKG electrodes are seen. Increased markings at the lung bases likely worse on the left side. This has improved as compared to prior study. There is no demonstrated pleural abnormality. Sternal cerclage wires and vascular clips are present from a prior sternotomy and coronary artery bypass graft procedure (CABG). Moderate cardiomegaly. Normal mediastinum and dalton. Normal visualized pulmonary arteries. There is atherosclerotic calcification of the aortic arch with tortuosity. There is a dextroscoliosis of the thoracic spine. Normal visualized ribs, clavicles, and shoulders. There is no demonstrated abnormality of the visualized soft tissue structures of the upper abdomen. RAD/Chest 1 View (Portable) IMPRESSION: Since prior study, there has been progressive clearing of the left lower lobe atelectasis and/or infiltrate. Electronically Signed: Arley Hernandez, at 15:40 EST , Service support ,
--- NOTE | 2019-04-25 15:04 | EKG12_ITS ---
Test Reason : SOB Blood Pressure : / mmHG Vent. Rate : 111 BPM Atrial Rate : 111 BPM P-R Int : 170 ms QRS Dur : 090 ms QT Int : 344 ms P-R-T Axes : 063 002 026 degrees QTc Int : 467 ms Sinus tachycardia Possible Left atrial enlargement Borderline ECG Confirmed by MIKE ROMERO, ALON ([id number]), publication editor KESHIA HUFFMAN ([id number]) on 04/29/2019 11:31:39 AM Referred By: YEN Confirmed By:ALON MCKEON MD
--- NOTE | 2019-04-25 15:05 | VDLE_ITS ---
Reason For Study: Pain RIGHT LEFT GSV is normal. CFV is compressible, spontaneous, phasic, CFV is compressible, spontaneous, phasic, competent, and demonstrates normal competent and demonstrates normal augmentation. augmentation. FV is compressible, spontaneous, phasic, FV is compressible, spontaneous, phasic, competent and demonstrates normal competent and demonstrates normal augmentation. augmentation. POP V is compressible, spontaneous, phasic, POP V is compressible, spontaneous, phasic, competent and demonstrates normal competent and demonstrates normal augmentation. augmentation. T/P Trunk is compressible. T/P Trunk is compressible. PTV is compressible. PTV is compressible. LT PerV is compressible. RT PerV is compressible. Acute deep vein thrombosis is noted in the Acute deep vein thrombosis is noted in the left soleus vein. right soleus vein. Left GSV previously harvested. Procedure Exam performed portable in ED. A preliminary report was called and/or faxed to [facility]. Interpretation Summary Acute deep vein thrombosis is noted in the right soleus vein. The remainder of the right lower extremity deep venous system is patent and compressible. Acute deep vein thrombosis is noted in the left soleus vein. The remainder of the left lower extremity deep venous system is patent and compressible. Valvular competence appears intact within the proximal deep venous systems bilaterally. The right great saphenous vein appears patent and compressible segmentally. The left great saphenous vein is absent, having been previously harvested. Ordering Physician: Caryn Moss Referring Physician: Nancy Weathers M.D. Performed By: Flower Trejo RVT
--- NOTE | 2019-04-25 15:07 | ED.VISSUMM ---
- ER Visit Summary Date of Service: 04/25/19 Chief Complaint: Shortness of breath History of Present Illness: The patient is a 83 F presenting with shortness of breath. Patient has had a cough and increasing shortness of breath over the past week. She has had subjective fever at home. She has had decreased appetite. Shortness of breath is worsened with exertion. She denies chest pain. She was recently admitted from 04/12-04/15 for CHF exacerbation. Her daughter states when she left the hospital her lower extremity swelling was under control. She now has increasing lower extremity swelling. Her Lasix was increased last week and she was started on Aldactone on Monday. She has been seen by home health and they sent her to the ED today for further evaluation. Echocardiogram 04/13/2019 showed estimated EF 65 to 70%. Severe mitral valve insufficiency, possible severe aortic stenosis. Physical Examination: Vitals are stable. Patient is afebrile. Alert no acute distress. HEENT exam is unremarkable. Neck is supple. Lungs are rhonchi bilaterally. Heart is regular and tachycardic, systolic murmur Abdomen is soft nontender nondistended. Extremities left greater than right edema. No erythema or warmth. Normal distal pulses. Skin is warm and dry. No focal neurologic deficit. Remainder of exam is unremarkable. Emergency Department Course and Treatment: Chest x-ray shows since prior study, there has been progressive clearing of the left lower lobe atelectasis and/or infiltrate. EKG is sinus tachycardia rate of 111. CBC unremarkable. Chemistries show sodium 134, glucose 126, BUN 32, creatinine 1.49. Troponin 0.039. INR 3.5. BNP 2955.6. Influenza negative. With ambulation patient became very dyspneic. CTA chest was not ordered at this time due to increasing creatinine and therapeutic INR. Discussed with the hospitalist for admission. Disposition: Admission Impression: CHF exacerbation, URI, bilateral lower extremity DVT This note was generated with [employer] dictation software. It may contain incorrect words, spelling, and punctuation that were not noted in review of the chart prior to signing ED Disposition - Plan for ED Patient: Referrals: Nancy Weathers MD [Primary Care Provider] -
[2019-04-25 15:27] LABS: Absolute Lymphocyte Count 1.56 X10^3/uL (0.83-4.51); Absolute Neutrophil Count 4.4 X10^3/uL (2.0-7.7); Basophil# 0.02 X10^3/uL; Basophil% 0.3 % (0-1); Eosinophil# 0.08 X10^3/uL; Eosinophils% 1.2 % (0-5); Hematocrit 40.6 % (37-47); Hemoglobin 12.5 g/dL (12.0-15.0); Lymphocyte # 1.56 X10^3/ul (4.0); Lymphocyte % 23.5 % (19-41); Mean Corp Hgb Conc 30.8 g/dL (32-36); Mean Corpuscular Hgb 26.2 pg (27.0-32.0); Mean Corpuscular Volume 85.1 fL (81-99); Mean Platelet Vol. 9.9 fl (6.2-12.0); Monocyte# 0.53 X10^3/uL; NRBC Flagged by Analyzer 0 % (0-5); Neutrophil # 4.42 X10^3/uL (2.7-7.7); Neutrophil % 66.5 % (47-70); POSITIVE MORPHOLOGY YES; Platelet Count 229 K/mm3 (150-450); RBC Distribution Width CV 14.9 % (11.6-14.6); RBC Distribution Width SD 46.2 fl (35.1-43.9); Red Blood Count 4.77 M/mm3 (4.2-5.4); White Blood Count 6.6 K/mm3 (4.4-11.0)
[2019-04-25 15:29] LABS: Differential Indicated SCAN CRITERIA MET
[2019-04-25 15:42] LABS: Anion Gap 3 (5-15); BUN 32 mg/dL (7-18); BUN/Creat Ratio 21.5 RATIO (10-20); Calcium,Total 8.4 mg/dL (8.5-10.1); Chloride 96 mmol/L (98-107); Creatinine, Serum 1.49 mg/dL (0.55-1.02); EST Glomerular Filtration Rate 36 mL/min (>60); Est Glom Filt Rate - Afr Amer 43 mL/min (>60); Estimated Creatinine Clearance 25.74 ml/min; Glucose 126 mg/dL (74-106); Potassium 3.7 mmol/L (3.5-5.1); Sodium Level 134 mmol/L (136-145)
[2019-04-25 15:46] LABS: Prothrombin Time (Protime)PT. 35.2 SECONDS (11.7-14.9)
[2019-04-25 15:57] LABS: BNP,B-Type NATRIURETIC PEPTIDE 2955.6 pg/mL (0-100)
[2019-04-25 16:01] LABS: International Normalized Ratio 3.5
--- NOTE | 2019-04-25 16:02 | ED.RN ---
lab called pt 35.[address] shook
[2019-04-25 16:17] LABS: Ovalocyte 1+; Red Cell Morphology N CHROM NORMAL (NORM C&C)
[2019-04-25 16:22] LABS: Platelet Estimate ADEQUATE (ADEQ)
--- NOTE | 2019-04-25 16:39 | PCM.HP.STD ---
<Stacie Carvajal - Last Filed: 04/25/19 17:48> Problem List (1) Severe aortic stenosis Status: Chronic (2) Diastolic CHF Status: Chronic Qualifiers: Heart failure chronicity: acute on chronic Qualified Code(s): I50.33 - Acute on chronic diastolic (congestive) heart failure (3) Chronic kidney disease, stage 3 Status: Chronic (4) Macular degeneration Status: Chronic (5) Hypothyroidism Status: Chronic History of Present Illness Date of Admission: 04/25/19 Chief Complaint: Shortness of breath, cough, increased lower extremity swelling. The patient is a 83 year old F who presents to the emergency room with 1 week history of increasing shortness of breath, lower extremity swelling, productive cough and fever. Patient was recently discharged 04/15/2019 following admission for acute diastolic CHF. Patient reports she felt well at discharge however a few days following being home developed upper respiratory symptoms which have worsened since that time. She reports cough is productive of yellow/green sputum. Reports intermittent low-grade fever. Daughter at bedside states they notified primary care provider of increased lower extremity swelling and her home Lasix regimen was increased and she was started on spironolactone as well. She has a past medical history of heart failure with preserved ejection fraction, severe aortic stenosis, hypothyroidism, chronic kidney disease stage III. Patient has been on long-term Coumadin, greater than 20 years per daughter for unclear reasons. Daughter reports patient had lower extremity DVTs following heart surgery many years ago and has been on Coumadin since that time. Past Medical History Past Medical History (Chronic Problems): Chronic Problems Severe aortic stenosis (Chronic) Diastolic CHF (Chronic) Chronic kidney disease, stage 3 (Chronic) Macular degeneration (Chronic) Hypothyroidism (Chronic) Allergies No Known Allergies Allergy (Verified 04/25/19 14:46) Home Medications: Ambulatory Orders Medication Instructions Recorded Furosemide [Lasix] 40 mg PO DAILY 04/12/19 Levothyroxine [Synthroid] 150 mcg PO DAILY@0600 #30 tab 04/14/19 Warfarin [Coumadin] 2 mg PO DAILY@1700 #30 tab 04/14/19 Spironolactone 50 mg PO DAILY 04/25/19 Surgical History: - - heart surgery Psychiatric History: No pertinent psych hx, Attn. deficit disorder CONFIGURATION MANAGER History: No pertinent CONFIGURATION MANAGER history Lives: Alone Smoking Status: Never smoker Alcohol: None Drugs: None - *Family History Maternal History Items: - - Denies known maternal cardiac history. Paternal History Items: - - Denies known paternal cardiac history. Review of Systems Constitutional: Reports: Malaise. Denies: Chills, Fever HEENT: Denies: Head Aches, Sinus Congestion, Sinus Drainage Cardiovascular: Reports: Edema - Lower extremity. Denies: Chest Pain, Light Headedness, Syncope Respiratory: Reports: Cough, Shortness of Breath, Sputum production, Wheezing Gastrointestinal: Denies: Abdominal Pain, Nausea, Vomiting Genitourinary: Denies: Dysuria Musculoskeletal: Denies: Joint Pain, Joint Tenderness Skin: Denies: Rash, Wounds Neurological: Denies: Numbness, Tingling, Focal weakness Psychiatric: Denies: Anxiety, Depression, Homicidal Ideations, Suicidal Ideations Hematologic/ Lymphatic: Denies: Easy Bruising, Easy Bleeding VTE Information - Inpt Only VTE Present on Admission: No VTE Mechan Device Prophylaxis: None VTE Pharm Prophylaxis ordered?: Yes Patient Problems: Active and Suspected Problems CHF exacerbation (Acute) Acute bronchitis (Acute) - Physical Exam Vitals/I&O's: Vital Signs Temp Pulse Resp BP Pulse Ox 98.4 F 114 H 18 107/70 95 04/25/19 14:46 04/25/19 14:46 04/25/19 14:46 04/25/19 14:46 04/25/19 14:46 Oxygen Delivery Method Room Air Weight: 129 lb Body Mass Index (BMI) 21.4 General: Alert, Oriented x3, Cooperative HEENT: Atraumatic, PERRLA, EOMI, Normocephalic Oral: Dry Mucosa Neck: Supple, No JVD, Negative Carotid Bruits Lungs: Diminished, Rhonchi, Wheezes Cardiovascular: Regular Rhythm, Normal S1, Normal S2, Murmur, Tachycardic Abdomen: Bowel Sounds Present, Soft, Non Tender, Non-Distended Extremities: No clubbing, No cyanosis, Edema - +3 bilateral lower extremity edema, left greater than right Skin: No rashes, No breakdown Musculoskeletal: No Tenderness to Palpation of Joints or Extremities Neurological: Cranial nerves II-XII grossly intact, Neuro grossly intact Psych/Mental Status: Normal Affect, Appropriate Microbiology Past 72 Hours 04/25/19 15:40 Mucosa - Nose Influenza Types A,B Direct FA (JAY) - Final Laboratory Results 04/25/19 15:15: WBC 6.6, RBC 4.77, Hgb 12.5, Hct 40.6, MCV 85.1, MCH 26.2 L, MCHC 30.8 L, RDW Std Deviation 46.2 H, RDW Coeff of Kaykay 14.9 H, Plt Count 229, MPV 9.9, Immature Gran % (Auto) 0.500, Neut % (Auto) 66.5, Lymph % (Auto) 23.5, Erie % (Auto) 8.0, Eos % (Auto) 1.2, Baso % (Auto) 0.3, Absolute Neuts (auto) 4.4, Absolute Lymphs (auto) 1.56, Nucleated RBC % 0, Platelet Estimate ADEQUATE, RBC Morphology N CHROM, Ovalocytes 1+ 04/25/19 15:15: PT 35.2 H, INR 3.5 H* 04/25/19 15:15: Sodium 134 L, Potassium 3.7, Chloride 96 L, Carbon Dioxide 35.0 H, Anion Gap 3 L, BUN 32 H, Creatinine 1.49 H, Estim Creat Clear Calc 25.74, Est GFR (MDRD) Af Amer 43 L, Est GFR (MDRD) Non-Af 36 L, BUN/Creatinine Ratio 21.5 H, Glucose 126 H, Calcium 8.4 L, Troponin I 0.039 04/25/19 15:15: B-Natriuretic Peptide 2955.6 H Assessment/Plan All Active Problems CHF exacerbation (Acute) Acute bronchitis (Acute) 1. Acute diastolic CHF-BNP 2955. Chest x-ray on admission appears improved from recent admission. Recent echo 04/13/2019 demonstrated EF 65 to 70%, severe aortic stenosis, PA pressure 75 mmHg, severe mitral valve insufficiency, moderate mitral valve prolapse, moderate global right ventricular systolic dysfunction. IV Lasix 20 mg twice daily. Patient did not tolerate aggressive diuresis during recent admission given severe aortic stenosis. Hold IV Lasix for systolic blood pressure less than 90. Campbell wraps. Strict I&O. Daily weight. Continue spironolactone regimen which was recently added by primary care provider. Repeat chest x-ray in a.m. 2. Suspected viral URI-patient reports productive cough x7 days with nasal congestion, intermittent low-grade fever. Influenza negative. Check respiratory panel. Send sputum culture. Chest x-ray without pneumonia. No leukocytosis. Afebrile on admission. Albuterol and DuoNeb aerosols. PRN guaifenesin. Will treat empirically with 5-day course of azithromycin. 3. Acute bilateral lower extremity DVT- Obtain VQ scan. Unable to obtain CT of chest given renal function. Plan to transition to Eliquis when INR is normalized. 4. Severe aortic stenosis-evaluated by cardiology during recent admission, follow-up with [facility] for routine follow-up at discharge. 5. Supratherapeutic INR-hold Coumadin, trend INR. 6. Hypothyroidism- home Synthroid regimen recently reduced from 200 mcg to 150 mcg daily. Recommend repeat TSH in 4 to 6 weeks as outpatient. 7. Chronic kidney disease stage III-at baseline, trend BMP. 8. Severe macular degeneration/poor eyesight-continue home health at discharge for assistance. DVT prophylaxis- coumadin, INR supratherapeutic CODE STATUS: DNR CC This patient was seen by ANAND Burns under the supervision of Dr. Betts. <Adiel Betts - Last Filed: 04/25/19 19:26> Problem List (1) CHF exacerbation Status: Acute (2) Acute bronchitis Status: Acute (3) Chronic kidney disease, stage 3 Status: Chronic (4) Diastolic CHF Status: Chronic Qualifiers: Heart failure chronicity: acute on chronic Qualified Code(s): I50.33 - Acute on chronic diastolic (congestive) heart failure (5) Hypothyroidism Status: Chronic (6) Macular degeneration Status: Chronic (7) Severe aortic stenosis Status: Chronic History of Present Illness The patient is a 83 year old F with history of chronic heart failure with preserved EF, echo 65 to 70% on April 12-2018 during previous admission for CHF exacerbation came to ER with progressive worsening of shortness of breath, lower extremity edema, low-grade fever 99 -100 ?C along with cough and clear sputum and flulike symptoms. About a week ago secondary to increased swelling and shortness of breath dose of Lasix was increased to 40 mg daily and started on Aldactone 50 mg daily by PCP. She has visiting nurse. She was found febrile and worsening of shortness of breath therefore admitted sent to ER. Chest x-ray shows clearing of left lower lobe atelectasis/infiltrate. Because of chronic kidney disease, stage III, creatinine 1.5, CT PE was not done but bilateral lower extremity venous Doppler shows bilateral soleal vein DVT. 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 EKG shows sinus tachycardia at 111 bpm. INR 3.5, troponin 0 0.039-. BNP is chronically elevated about 3000 although slightly elevated than previous. On floor, lactic acid was ordered and shows 2.4. Temperature 99.3. BP 132/57. Heart rate 100?to 120s. Clinical Impression(s) from Imaging Studies Chest X-Ray 04/25/19 15:04 IMPRESSION: Since prior study, there has been progressive clearing of the left lower lobe atelectasis and/or infiltrate. [] Past Medical History Allergies No Known Allergies Allergy (Verified 04/25/19 14:46) Review of Systems Constitutional: Denies: Chills, Fever, Weight Change HEENT: Denies: Head Aches, Sinus Congestion, Sinus Drainage Cardiovascular: Reports: Edema. Denies: Chest Pain, Palpitations Respiratory: Reports: Cough, Shortness of Breath, Sputum production. Denies: Shortness of breath at rest Gastrointestinal: Denies: Abdominal Pain, Nausea, Vomiting Genitourinary: Denies: Dysuria Musculoskeletal: Denies: Joint Pain, Joint Tenderness Skin: Denies: Rash, Wounds Neurological: Denies: Numbness, Tingling, Focal weakness Psychiatric: Denies: Anxiety, Depression, Homicidal Ideations, Suicidal Ideations Hematologic/ Lymphatic: Denies: Easy Bruising, Easy Bleeding VTE Information - Inpt Only VTE Pharm Prophylaxis ordered?: Yes - Physical Exam Vitals/I&O's: Vital Signs Temp Pulse Resp BP Pulse Ox 99.3 F H 116 H 30 H 115/77 98 04/25/19 18:45 04/25/19 18:45 04/25/19 18:45 04/25/19 18:45 04/25/19 18:45 Oxygen Flow Rate (L/min) 2 Oxygen Delivery Method Nasal Cannula Weight: 130 lb 1.6 oz Body Mass Index (BMI) 21.7 General: Alert, Oriented x3, Cooperative HEENT: Atraumatic, PERRLA, EOMI, Normocephalic Neck: Supple, No JVD, Negative Carotid Bruits Lungs: Diminished - Air entry severely diminished., Rhonchi, Short of Breath, Tachypneic, Wheezes, - - No crepitations/rales Cardiovascular: Regular rate, Regular Rhythm, Normal S1, Normal S2, Murmur - Pansystolic murmur, grade 4/6 present over apex with radiation to left axillary region suggestive of severe MR. Ejection systolic murmur present over aortic region with radiation to carotids. Abdomen: Bowel Sounds Present, Soft, Non Tender Extremities: Capillary Refill Less than 3 Seconds, Edema Skin: No rashes, No breakdown Musculoskeletal: No Tenderness to Palpation of Joints or Extremities, Arthritic Changes, Muscle Wasting Neurological: Cranial nerves II-XII grossly intact Psych/Mental Status: Normal Affect, Appropriate Microbiology Past 72 Hours 04/25/19 15:40 Mucosa - Nose Influenza Types A,B Direct FA (JAY) - Final Laboratory Results 04/25/19 15:15: WBC 6.6, RBC 4.77, Hgb 12.5, Hct 40.6, MCV 85.1, MCH 26.2 L, MCHC 30.8 L, RDW Std Deviation 46.2 H, RDW Coeff of Kaykay 14.9 H, Plt Count 229, MPV 9.9, Immature Gran % (Auto) 0.500, Neut % (Auto) 66.5, Lymph % (Auto) 23.5, Erie % (Auto) 8.0, Eos % (Auto) 1.2, Baso % (Auto) 0.3, Absolute Neuts (auto) 4.4, Absolute Lymphs (auto) 1.56, Nucleated RBC % 0, Platelet Estimate ADEQUATE, RBC Morphology N CHROM, Ovalocytes 1+ 04/25/19 15:15: PT 35.2 H, INR 3.5 H* 04/25/19 15:15: Sodium 134 L, Potassium 3.7, Chloride 96 L, Carbon Dioxide 35.0 H, Anion Gap 3 L, BUN 32 H, Creatinine 1.49 H, Estim Creat Clear Calc 25.74, Est GFR (MDRD) Af Amer 43 L, Est GFR (MDRD) Non-Af 36 L, BUN/Creatinine Ratio 21.5 H, Glucose 126 H, Calcium 8.4 L, Troponin I 0.039 04/25/19 15:15: B-Natriuretic Peptide 2955.6 H 04/25/19 15:15: Lactic Acid 2.4 H* 04/25/19 15:15: Magnesium Pending, Total Bilirubin Pending, Direct Bilirubin Pending, AST Pending, ALT Pending, Alkaline Phosphatase Pending, Total Protein Pending, Albumin Pending 04/25/19 18:30: Troponin I Pending Current Medications Acetaminophen (Tylenol) 650 mg PO Q6H PRN PRN PRN Reason: Pain Score 1-3/Temp > 100.7 F Albuterol Sulfate (Ventolin Aerosols) 2.5 mg INHALATION Q2H PRN PRN PRN Reason: SOB/Wheezing Albuterol/Ipratropium (Duoneb) 3 ml INHALATION Q4H.RT OG Azithromycin (Zithromax) 500 mg PO Q24 OG Furosemide (Lasix) 40 mg IV DAILY OG Glucagon () 1 mg IM .X1 PRN PRN Reason: Hypoglycemia Guaifenesin (Mucinex) 1,200 mg PO BID OG Guaifenesin (Robitussin) 20 ml PO Q4H PRN PRN PRN Reason: COUGH Ceftriaxone Sodium (Rocephin) 1 gm in 50 mls @ 100 mls/hr IV Q24 OG Dextrose (Dextrose 10%-Water) 250 mls @ 999 mls/hr IV .Q16M PRN; Protocol PRN Reason: HYPOGLYCEMIA Sodium Chloride () 500 mls @ 999 mls/hr IV .Q31M ONE Stop: 04/25/19 19:25 Levothyroxine Sodium (Synthroid) 150 mcg PO DAILY@0600 [facility] Melatonin (Melatonin) 3 mg PO QHS PRN PRN PRN Reason: INSOMNIA Morphine Sulfate () 2 mg IV Q3H PRN PRN PRN Reason: Pain Score 6-10/10 Nitroglycerin (Nitrostat) 0.4 mg SUBLINGUAL Q5M PRN PRN Reason: CARDIAC/CHEST PAIN Oxycodone HCl (Oxyir) 5 mg PO Q4H PRN PRN PRN Reason: Pain Score 4-5/10 Polyethylene Glycol (Miralax) 17 gm PO DAILY OG Senna/Docusate Sodium (Senokot-S, Nehal-Colace) 2 tablet PO BID PRN PRN PRN Reason: Constipation Sodium Chloride () 10 - 40 ml IV UD PRN PRN Reason: SALINE FLUSH Last Admin: 04/25/19 18:04 Dose: 10 ml Documented by: Spironolactone (Aldactone) 50 mg PO DAILYCM [facility] Assessment/Plan This patient was seen in conjunction with DRY END OPERATORStacie. I have independently interviewed and examined the patient and reviewed pertinent history, examination findings, laboratory and plan of management. I have reviewed the note and agree with the documented findings with the few additional points. In brief, patient is admitted for acute on chronic shortness of breath along with lower extremity edema suggestive of acute on chronic diastolic heart failure. Patient also has symptoms suggestive of acute bronchitis with fever, low blood pressure 106/79, tachycardia, tachypnea, lactic acid suggestive of 2.4, suggestive of severe sepsis, possible Acute bronchitis. On IV Rocephin and Zithromax. VQ scan to rule out PE and CT PE is contraindicated. Rest comorbidities including valvular heart disease, severe aortic stenosis and severe MR resulting into heart failure, hypothyroidism CKD stage III severe macular degeneration with legal blindness and supratherapeutic INR admission level CODE STATUS/advanced to do discussed with the patient's daughter and patient herself. Patient does not want BiPAP or positive pressure ventilation support. Patient does not want artificial life support including intubation, tube feed, ventilator and/chest compression. Patient is DNR CC. Total time spent in [id number] encounter in discussion of advanced directive 18 minutes. I have discussed my assessment with DRY END OPERATORStacie and orders have been reviewed. Code Visit Inpatient E&M: 28683 Init Hosp L3 Procedures: 09710 Advncd Care Plan 30 Min
[2019-04-25] MEDS: 0.9% Saline Lock 10 ML Syringe IV ×3 (18:04→22:55)
[2019-04-25] MEDS: Furosemide 20 MG/2 ML VIAL IV (18:04)
[2019-04-25 18:43] LABS: Lactic Acid 2.4 mmol/L (0.4-1.9)
[2019-04-25] MEDS: guaiFENesin 1,200 MG Tablet 1200 MG PO (19:22)
[2019-04-25] MEDS: Azithromycin 250 MG Tablet 500 MG PO (19:22)
[2019-04-25 19:54] LABS: AST(SGOT) 25 U/L (15-37); Alanine Aminotransfer ALT/SGPT 19 U/L (13-56); Albumin, Serum 3.1 g/dL (3.2-5.0); Alkaline Phosphatase 81 U/L (45-117); Bilirubin, Direct 0.38 mg/dL (0.00-0.30); Globulin 3.4 g/dL (2.2-4.2); Magnesium 2.6 mg/dL (1.6-2.6); Protein, Total 6.5 g/dL (6.4-8.2)
[2019-04-25] MEDS: Ipratropium/Albuterol Sulfate 3 ML AMPUL.NEB INHALATION ×2 (20:15→23:34)
[2019-04-25] MEDS: Lactated Ringers 1,000 ML 500 ML IV (20:33)
[2019-04-25 21:47] LABS: Reflex Lactate? Y
[2019-04-25 22:34] LABS: Lactic Acid 1.8 mmol/L (0.4-1.9)
[2019-04-25 23:06] LABS: Mucous, Urine 0 SEEN /hpf (<or=2+); Red Blood Cells-Urine 0 SEEN /hpf (0-5); Squamous Epithelial Cells - UA 0 SEEN /hpf (5-10)
[2019-04-25 23:09] LABS: Color, Urine Yellow (Yellow); Glucose, Dipstick Normal (Normal); Ketone-Dipstick Negative (Negative); Leukocyte Esterase-Dipstick 500 /ul (Negative); Nitrite-Dipstick Positive (Negative); Occult Blood-Urine 25 /ul (Negative); Protein-Dipstick 15 mg/dl (Negative); Specific Gravity, Urine 1.015 (1.002-1.030); Urine Bilirubin Dipstick Negative (Negative); Urine Clarity Cloudy (Clear); Urine Urobilinogen Normal (Normal)
[2019-04-25 23:22] LABS: Bacteria 2+ /hpf (None Seen); White Blood Cells 10-25 SEEN /hpf (0-5)
[2019-04-26] VITALS (14 sets, daily range): BP systolic 101–102; BP diastolic 62–73; PULSE 98–117; RESP 18–32; TEMP 36.4–38; O2SAT 97–99
[2019-04-26 00:40] LABS: M R Staph aureus DNA By PCR Negative (Negative); Probe Check PASS; Specimen Processing Control PASS
[2019-04-26] MEDS: Ipratropium/Albuterol Sulfate 3 ML AMPUL.NEB INHALATION ×5 (02:24→18:37)
[2019-04-26] MEDS: Levothyroxine 150 MCG Tablet PO (05:08)
--- NOTE | 2019-04-26 05:55 | NM_ITS ---
CLINICAL: Female, 83 years old. SHORT OF BREATH -- VERY DIFFICULT VENTILATION-MASK USED -- BEST SCAN DONE NUCLEAR VENTILATION/PERFUSION - LUNG TECHNIQUE: The patient was administered 6 mCi of Tc MAA followed by a perfusion lung scan. The patient was administered 50 mCi of Tc DTPA aerosol followed by a ventilation lung scan. Comparison made to prior chest radiograph dated April 26, 2019.. FINDINGS: The pulmonary perfusion study demonstrates uniform perfusion throughout both lung sanchez. There are no demonstrated segmental or subsegmental perfusion defects Central accumulation of the aerosol in the central airways suggestive of airway disease. NM/Lung Scan Vent/Perf IMPRESSION: Central accumulation of the ventilation agent in the central airways. Low probability for pulmonary embolism. Electronically Signed: Arley Hernandez, at 13:45 EST , Service support ,
[2019-04-26 06:14] LABS: International Normalized Ratio 3.2
[2019-04-26 06:19] LABS: Anion Gap 6 (5-15); BUN 27 mg/dL (7-18); BUN/Creat Ratio 20.3 RATIO (10-20); Calcium,Total 7.5 mg/dL (8.5-10.1); Chloride 96 mmol/L (98-107); Creatinine, Serum 1.33 mg/dL (0.55-1.02); EST Glomerular Filtration Rate 41 mL/min (>60); Est Glom Filt Rate - Afr Amer 49 mL/min (>60); Estimated Creatinine Clearance 27.68 ml/min; Glucose 130 mg/dL (74-106); Magnesium 2.4 mg/dL (1.6-2.6); Potassium 3.3 mmol/L (3.5-5.1); Sodium Level 133 mmol/L (136-145)
[2019-04-26] MEDS: Spironolactone 25 MG Tablet 50 MG PO (10:07)
[2019-04-26] MEDS: guaiFENesin 1,200 MG Tablet 1200 MG PO ×2 (10:08→21:10)
[2019-04-26] MEDS: Polyethylene Glycol 3350 17 GM PACKET PO (10:08)
[2019-04-26] MEDS: Azithromycin 250 MG Tablet 500 MG PO (10:08)
[2019-04-26] MEDS: Furosemide 40 MG/4 ML Vial IV (10:08)
--- NOTE | 2019-04-26 10:20 | CASEMGMT ---
Addendum entered by Flower Harris 04/26/19 10:46: This RN CM back to room and pt is still getting care at this time. Will attempt again later. Jamshid MUHAMMAD CM Original Note: This RN CM to room to complete CM assessment and RN is at bedside passing meds at this time. Will attempt again later. Jasmhid MUHAMMAD CM
--- NOTE | 2019-04-26 12:11 | CASEMGMT ---
Social Work SW met with pt and two daughters Patrica and Iman and completed assessment. Confirmed PCP as Dr. Weathers and pt has no specialists. Uses [facility] and has prescription insurance. Pt states she feels safe in her home where she lives alone in a mobile home with 4 steps into house and pt reports she is independent with all ADLs and IADLs. She does not drive but daughters and neighbors are able to assist with transportation. Pt does have a wheelchair and cane which she does not use and a raised toilet seat in one of the bathrooms. Pt does not currently have home O2 but is wondering if she will need it upon d/c. SW explained nursing will monitor and if needed RN CM will assist with setting up. Pt is currently with [facility] RN, PT and according to dgts, [facility] are working with [facility] to assist pt with a med box. Pt has not previously been in a SNF. Pt plans to return home upon discharge and is accepting of continuation of care with [facility]. Per pt daughters, pt has been talking with PCP regarding palliative care. SW discussed palliative medicine with pt and daughters and they are agreeable to a referral being made. Written information provided on Palliative medicine program. Referral made to Anna Marie at [facility] and information faxed. Per pt request, Palliative medicine to contact pt dgt Patrica to set up appointment. JUAN Mazariegos
--- NOTE | 2019-04-26 13:06 | CASEMGMT ---
Addendum entered by Mike Aguirre 04/26/19 13:33: Betty @ [facility] also made aware Palliative Referral has been made. Original Note: JB MALLORY NOTE: To room to talk with pt/family. Pt is out of room for testing. Patrica, Daughter, is at bedside. Discussed possibility of pt needing Oxygen @ D/C. Given list of local DME companies. 1st preference is [employer]. Plan is for pt to d/c home on Eliquis. Eliquis prescription savings card given to Patrica and instructions given. Voices understanding. Call placed to [facility]. Message left on Betty's VM informing her pt has been admitted to [facility]. Plan: Follow for Home oxygen needs @ discharge. May need Home oxygen testing completed prior to discharge. [facility] to be notified when pt is discharged for resumption of [facility] services. Radha RODRIGUEZ RN CM
--- NOTE | 2019-04-26 13:17 | RAD_ITS ---
STUDY: X-RAY CHEST REASON FOR EXAM: Female, 83 years old. SOB AND COUGH. HX OF CHF TECHNIQUE: AP and lateral views of the chest. COMPARISON: Comparison is made with prior examination dated April 25, 2019. FINDINGS: EKG electrodes are seen. Mild degree of residual vascular congestion and mild CHF. Stable increased markings at the left lung base. There is no demonstrated pleural abnormality. Sternal cerclage wires and vascular clips are present from a prior sternotomy and coronary artery bypass graft procedure (CABG). Cardiomegaly. Normal mediastinum and dalton. Normal visualized pulmonary arteries. There is atherosclerotic calcification of the aortic arch with tortuosity. Normal visualized thoracic spine. Normal visualized ribs, clavicles, and shoulders. Findings suggestive of a moderate-sized hiatal hernia. RAD/Chest PA and Lateral IMPRESSION: Improved aeration with mild residual CHF. Moderate sized hiatal hernia. Electronically Signed: Arley Hernandez, at 13:42 EST , Service support ,
--- NOTE | 2019-04-26 13:37 | PCM.PROGNOTE ---
<Stacie Carvajal - Last Filed: 04/26/19 13:44> Patient Problems: Active and Suspected Problems CHF exacerbation (Acute) Acute bronchitis (Acute) Subjective: Patient seen and examined. Continues to have cough, congestion and shortness of breath. Denies further fever. - Physical Exam Vitals/I&O's: Vital Signs Temp Pulse Resp BP Pulse Ox 98.4 F 105 H 20 H 102/68 98 04/26/19 10:03 04/26/19 11:29 04/26/19 11:29 04/26/19 10:03 04/26/19 10:03 Oxygen Flow Rate (L/min) 2 Oxygen Delivery Method Nasal Cannula Weight: 131 lb 9.855 oz Body Mass Index (BMI) 21.7 Intake and Output for Last 24 Hours 04/24/19 04/25/19 04/26/19 23:59 23:59 23:59 Intake Total 1620 / 1620 253 / 253 Output Total 125 / 125 400 / 400 Balance 1495 / 1495 -147 / -147 General: Alert, Oriented x3, Cooperative HEENT: Atraumatic, PERRLA, EOMI, Normocephalic Neck: Supple, No JVD, Negative Carotid Bruits Lungs: Clear to auscultation, Normal air movement Cardiovascular: Regular Rhythm, Normal S1, Normal S2, Murmur, Tachycardic Abdomen: Bowel Sounds Present, Soft, Non Tender, Non-Distended Extremities: No clubbing, No cyanosis, Edema - Bilateral lower extremities Skin: No rashes, No breakdown Musculoskeletal: No Tenderness to Palpation of Joints or Extremities Neurological: Cranial nerves II-XII grossly intact, Neuro grossly intact Psych/Mental Status: Normal Affect, Appropriate Microbiology Past 72 Hours 04/25/19 22:55 Sputum, Expectorated/Coughed Gram Stain - Final 04/25/19 20:25 Mucosa - Nasopharyngeal Respiratory Panel (PCR) - Final RSV A 04/25/19 22:55 Urine, Clean Catch Streptococcus pneumoniae Antigen (M - Final 04/25/19 22:55 Urine, Clean Catch Legionella Antigen - Final 04/25/19 15:40 Mucosa - Nose Influenza Types A,B Direct FA (JAY) - Final Laboratory Results 04/25/19 15:15: WBC 6.6, RBC 4.77, Hgb 12.5, Hct 40.6, MCV 85.1, MCH 26.2 L, MCHC 30.8 L, RDW Std Deviation 46.2 H, RDW Coeff of [place] 14.9 H, Plt Count 229, MPV 9.9, Immature Gran % (Auto) 0.500, Neut % (Auto) 66.5, Lymph % (Auto) 23.5, [place] % (Auto) 8.0, Eos % (Auto) 1.2, Baso % (Auto) 0.3, Absolute Neuts (auto) 4.4, Absolute Lymphs (auto) 1.56, Nucleated RBC % 0, Platelet Estimate ADEQUATE, RBC Morphology N CHROM, Ovalocytes 1+ 04/25/19 15:15: PT 35.2 H, INR 3.5 H* 04/25/19 15:15: Sodium 134 L, Potassium 3.7, Chloride 96 L, Carbon Dioxide 35.0 H, Anion Gap 3 L, BUN 32 H, Creatinine 1.49 H, Estim Creat Clear Calc 25.74, Est GFR (MDRD) Af Amer 43 L, Est GFR (MDRD) Non-Af 36 L, BUN/Creatinine Ratio 21.5 H, Glucose 126 H, Calcium 8.4 L, Troponin I 0.039 04/25/19 15:15: B-Natriuretic Peptide 2955.6 H 04/25/19 15:15: Lactic Acid 2.4 H* 04/25/19 18:30: Troponin I 0.045 04/25/19 18:30: Magnesium 2.6, Total Bilirubin 1.00, Direct Bilirubin 0.38 H, AST 25, ALT 19, Alkaline Phosphatase 81, Total Protein 6.5, Albumin 3.1 L, Globulin 3.4 04/25/19 21:06: Troponin I 0.022 04/25/19 21:06: Lactic Acid 1.8 04/25/19 22:55: Urine Color Yellow, Urine Clarity Cloudy, Urine pH 6.0, Ur Specific [place] 1.015, Urine Protein 15 H, Urine Glucose (UA) Normal, Urine Ketones Negative, Urine Occult Blood 25 H, Urine Nitrite Positive H, Urine Bilirubin Negative, Urine Urobilinogen Normal, Ur Leukocyte Esterase 500 H, Urine RBC 0 SEEN, Urine WBC 10-25 SEEN, Ur Squamous Epith Cells 0 SEEN, Urine Bacteria 2+, Urine Mucus 0 SEEN 04/25/19 23:10: MRSA (PCR) Negative 04/26/19 05:21: Sodium 133 L, Potassium 3.3 L, Chloride 96 L, Carbon Dioxide 31.0, Anion Gap 6, BUN 27 H, Creatinine 1.33 H, Estim Creat Clear Calc 27.68, Est GFR (MDRD) Af Amer 49 L, Est GFR (MDRD) Non-Af 41 L, BUN/Creatinine Ratio 20.3 H, Glucose 130 H, Calcium 7.5 L, Magnesium 2.4 04/26/19 05:21: PT 33.0 H, INR 3.2 Current Medications Acetaminophen (Tylenol) 650 mg PO Q6H PRN PRN PRN Reason: Pain Score 1-3/Temp > 100.7 F Albuterol Sulfate (Ventolin Aerosols) 2.5 mg INHALATION Q2H PRN PRN PRN Reason: SOB/Wheezing Albuterol/Ipratropium (Duoneb) 3 ml INHALATION Q4H.RT [facility] Last Admin: 04/26/19 11:29 Dose: 3 ml Documented by: Azithromycin (Zithromax) 500 mg PO Q24 OG Last Admin: 04/26/19 10:08 Dose: 500 mg Documented by: Furosemide (Lasix) 40 mg IV DAILY [facility] Last Admin: 04/26/19 10:08 Dose: 40 mg Documented by: Glucagon () 1 mg IM .X1 PRN PRN Reason: Hypoglycemia Guaifenesin (Mucinex) 1,200 mg PO BID [facility] Last Admin: 04/26/19 10:08 Dose: 1,200 mg Documented by: Dextrose (Dextrose 10%-Water) 250 mls @ 999 mls/hr IV .Q16M PRN; Protocol PRN Reason: HYPOGLYCEMIA Piperacillin Sod/Tazobactam (Sod 3.375 gm/ Sodium Chloride) 50 mls @ 12.5 mls/hr IV Q8 OG Last Infusion: 04/26/19 10:08 Dose: Infused Documented by: Sodium Chloride () 250 mls @ 15 mls/hr IV .[id number] PRN PRN Reason: Saline Flush Last Infusion: 04/26/19 05:06 Dose: 0 mls/hr Documented by: Sodium Chloride () 250 mls @ 15 mls/hr IV .[id number] PRN PRN Reason: Additional IVPB Infusion Levothyroxine Sodium (Synthroid) 150 mcg PO DAILY@0600 [facility] Last Admin: 04/26/19 05:08 Dose: 150 mcg Documented by: Melatonin (Melatonin) 3 mg PO QHS PRN PRN PRN Reason: INSOMNIA Morphine Sulfate () 2 mg IV Q3H PRN PRN PRN Reason: Pain Score 6-10/10 Nitroglycerin (Nitrostat) 0.4 mg SUBLINGUAL Q5M PRN PRN Reason: CARDIAC/CHEST PAIN Oxycodone HCl (Oxyir) 5 mg PO Q4H PRN PRN PRN Reason: Pain Score 4-5/10 Polyethylene Glycol (Miralax) 17 gm PO DAILY [facility] Last Admin: 04/26/19 10:08 Dose: 17 gm Documented by: Senna/Docusate Sodium (Senokot-S, Nehal-Colace) 2 tablet PO BID PRN PRN PRN Reason: Constipation Sodium Chloride () 10 - 40 ml IV UD PRN PRN Reason: SALINE FLUSH Last Admin: 04/25/19 22:55 Dose: 10 ml Documented by: [facility]) [facility] Last Admin: 04/26/19 10:07 Dose: 50 mg Documented by: Medical Necessity - Tobacco Use Smoking Status: Never smoker Tobacco Use: Secondhand Assessment/Plan All Active Problems CHF exacerbation (Acute) Acute bronchitis (Acute) 1. Acute diastolic CHF-BNP 2955. Chest x-ray on admission appears improved from recent admission. Recent echo 04/13/2019 demonstrated EF 65 to 70%, severe aortic stenosis, PA pressure 75 mmHg, severe mitral valve insufficiency, moderate mitral valve prolapse, moderate global right ventricular systolic dysfunction. IV Lasix 40mg daily. Patient did not tolerate aggressive diuresis during recent admission given severe aortic stenosis. Hold IV Lasix for systolic blood pressure less than 90. [place] wraps. Strict I&O. Daily weight. Continue spironolactone regimen which was recently added by primary care provider. 2. Acute bronchitis secondary to RSV-patient reports productive cough x7 days with nasal congestion, intermittent low-grade fever. Influenza negative. Respiratory panel positive for RSV. Sputum culture pending. Chest x-ray without pneumonia. No leukocytosis. Afebrile on admission. Albuterol and DuoNeb aerosols. PRN guaifenesin. Will treat empirically with 5-day course of azithromycin. 3. Acute bilateral lower extremity DVT-VQ scan pending. Unable to obtain CT of chest given renal function. Plan to transition to Eliquis when INR is normalized. 4. Severe aortic stenosis-evaluated by cardiology during recent admission, follow-up with [facility] for routine follow-up at discharge. 5. Supratherapeutic INR-hold Coumadin, trend INR. 6. Hypothyroidism- home Synthroid regimen recently reduced from 200 mcg to 150 mcg daily. Recommend repeat TSH in 4 to 6 weeks as outpatient. 7. Chronic kidney disease stage III-at baseline, trend BMP. 8. Severe macular degeneration/poor eyesight-continue home health at discharge for assistance. DVT prophylaxis- coumadin, INR supratherapeutic CODE STATUS: DNR CC This patient was seen by ANAND Burns under the supervision of Dr. Betts. <Adiel Betts - Last Filed: 04/26/19 16:49> Subjective: Patient initially had temperature yesterday late afternoon. She was afebrile after that but again had temperature 100.4. Shortness of breath is improved. Patient still has cough, congestion - Physical Exam Vitals/I&O's: Vital Signs Temp Pulse Resp BP Pulse Ox 100.4 F H 107 H 18 101/73 98 04/26/19 15:25 04/26/19 16:00 04/26/19 15:41 04/26/19 15:25 04/26/19 15:25 Oxygen Flow Rate (L/min) 2 Oxygen Delivery Method Nasal Cannula Weight: 131 lb 9.855 oz Body Mass Index (BMI) 21.7 Intake and Output for Last 24 Hours 04/24/19 04/25/19 04/26/19 23:59 23:59 23:59 Intake Total 1620 / 1620 253 / 253 Output Total 125 / 125 400 / 400 Balance 1495 / 1495 -147 / -147 General: Alert, Oriented x3, Cooperative HEENT: Atraumatic, PERRLA, EOMI, Normocephalic Neck: Supple, No JVD, Negative Carotid Bruits Lungs: Diminished, Rhonchi, Short of Breath Cardiovascular: Regular Rhythm, Normal S1, Murmur, Tachycardic Abdomen: Bowel Sounds Present, Soft, Non Tender, Non-Distended Extremities: Capillary Refill Less than 3 Seconds, Edema Skin: No rashes, No breakdown Musculoskeletal: No Tenderness to Palpation of Joints or Extremities, Arthritic Changes Neurological: Cranial nerves II-XII grossly intact Psych/Mental Status: Normal Affect, Appropriate Microbiology Past 72 Hours 04/25/19 22:55 Urine, Clean Catch Urine Culture - Preliminary Presumptive E. coli 04/25/19 22:55 Sputum, Expectorated/Coughed Gram Stain - Final 04/25/19 20:25 Mucosa - Nasopharyngeal Respiratory Panel (PCR) - Final RSV A 04/25/19 22:55 Urine, Clean Catch Streptococcus pneumoniae Antigen (M - Final 04/25/19 22:55 Urine, Clean Catch Legionella Antigen - Final 04/25/19 15:40 Mucosa - Nose Influenza Types A,B Direct FA (JAY) - Final Laboratory Results 04/25/19 15:15: Lactic Acid 2.4 H* 04/25/19 18:30: Troponin I 0.045 04/25/19 18:30: Magnesium 2.6, Total Bilirubin 1.00, Direct Bilirubin 0.38 H, AST 25, ALT 19, Alkaline Phosphatase 81, Total Protein 6.5, Albumin 3.1 L, Globulin 3.4 04/25/19 21:06: Troponin I 0.022 04/25/19 21:06: Lactic Acid 1.8 04/25/19 22:55: Urine Color Yellow, Urine Clarity Cloudy, Urine pH 6.0, Ur Specific [place] 1.015, Urine Protein 15 H, Urine Glucose (UA) Normal, Urine Ketones Negative, Urine Occult Blood 25 H, Urine Nitrite Positive H, Urine Bilirubin Negative, Urine Urobilinogen Normal, Ur Leukocyte Esterase 500 H, Urine RBC 0 SEEN, Urine WBC 10-25 SEEN, Ur Squamous Epith Cells 0 SEEN, Urine Bacteria 2+, Urine Mucus 0 SEEN 04/25/19 23:10: MRSA (PCR) Negative 04/26/19 05:21: Sodium 133 L, Potassium 3.3 L, Chloride 96 L, Carbon Dioxide 31.0, Anion Gap 6, BUN 27 H, Creatinine 1.33 H, Estim Creat Clear Calc 27.68, Est GFR (MDRD) Af Amer 49 L, Est GFR (MDRD) Non-Af 41 L, BUN/Creatinine Ratio 20.3 H, Glucose 130 H, Calcium 7.5 L, Magnesium 2.4 04/26/19 05:21: PT 33.0 H, INR 3.2 Current Medications Acetaminophen (Tylenol) 650 mg PO Q6H PRN PRN PRN Reason: Pain Score 1-3/Temp > 100.7 F Albuterol Sulfate (Ventolin Aerosols) 2.5 mg INHALATION Q2H PRN PRN PRN Reason: SOB/Wheezing Albuterol/Ipratropium (Duoneb) 3 ml INHALATION Q4H.RT [facility] Last Admin: 04/26/19 15:41 Dose: 3 ml Documented by: Azithromycin (Zithromax) 500 mg PO Q24 [facility] Last Admin: 04/26/19 10:08 Dose: 500 mg Documented by: Furosemide (Lasix) 40 mg IV DAILY [facility] Last Admin: 04/26/19 10:08 Dose: 40 mg Documented by: Glucagon () 1 mg IM .X1 PRN PRN Reason: Hypoglycemia Guaifenesin (Mucinex) 1,200 mg PO BID [facility] Last Admin: 04/26/19 10:08 Dose: 1,200 mg Documented by: Dextrose (Dextrose 10%-Water) 250 mls @ 999 mls/hr IV .Q16M PRN; Protocol PRN Reason: HYPOGLYCEMIA Piperacillin Sod/Tazobactam (Sod 3.375 gm/ Sodium Chloride) 50 mls @ 12.5 mls/hr IV Q8 [facility] Last Admin: 04/26/19 15:23 Dose: 12.5 mls/hr Documented by: Sodium Chloride () 250 mls @ 15 mls/hr IV .[id number] PRN PRN Reason: Saline Flush Last Infusion: 04/26/19 05:06 Dose: 0 mls/hr Documented by: Sodium Chloride () 250 mls @ 15 mls/hr IV .[id number] PRN PRN Reason: Additional IVPB Infusion Levothyroxine Sodium (Synthroid) 150 mcg PO DAILY@0600 [facility] Last Admin: 04/26/19 05:08 Dose: 150 mcg Documented by: Melatonin (Melatonin) 3 mg PO QHS PRN PRN PRN Reason: INSOMNIA Morphine Sulfate () 2 mg IV Q3H PRN PRN PRN Reason: Pain Score 6-10/10 Nitroglycerin (Nitrostat) 0.4 mg SUBLINGUAL Q5M PRN PRN Reason: CARDIAC/CHEST PAIN Oxycodone HCl (Oxyir) 5 mg PO Q4H PRN PRN PRN Reason: Pain Score 4-5/10 Polyethylene Glycol (Miralax) 17 gm PO DAILY [facility] Last Admin: 04/26/19 10:08 Dose: 17 gm Documented by: Senna/Docusate Sodium (Senokot-S, Nehal-Colace) 2 tablet PO BID PRN PRN PRN Reason: Constipation Sodium Chloride () 10 - 40 ml IV UD PRN PRN Reason: SALINE FLUSH Last Admin: 04/25/19 22:55 Dose: 10 ml Documented by: [facility] ([facility]) [facility] Last Admin: 04/26/19 10:07 Dose: 50 mg Documented by: Assessment/Plan This patient was seen in conjunction with Stacie MELTON. I have independently interviewed and examined the patient and reviewed pertinent history, examination findings, laboratory and plan of management. I have reviewed the note and agree with the documented findings with the few additional points. In brief, patient is admitted for acute bronchitis symptoms secondary to RSV. Repeat chest x-ray shows improved aeration with mild residual CHF. Patient had about 1.5 L normal saline bolus as patient looks dehydrated with lactic acid 2.4 suggestive of severe sepsis most likely secondary to viral acute viral bronchitis RSV.. Lactic acid improved. Respiratory panel is positive RSV?A. Malvin antigens are negative. Urine culture shows more than 100,000 colonies of E. coli. Currently on Zithromax and Zosyn. Narrow down antibiotic discontinue Zosyn and start Rocephin. VQ scan shows low priority of PE. Patient is DNR CC. I have discussed my assessment with Stacie MELTON and orders have been reviewed. Clinical Impression(s) from Imaging Studies Chest X-Ray 04/25/19 15:04 IMPRESSION: Since prior study, there has been progressive clearing of the left lower lobe atelectasis and/or infiltrate. Lung Scan-VQ NM 04/26/19 05:55 IMPRESSION: Central accumulation of the ventilation agent in the central airways. Low probability for pulmonary embolism. Electronically Signed: Arley Hernandez, at 13:45 EST , Service support , Chest X-Ray 04/26/19 13:17 IMPRESSION: Improved aeration with mild residual CHF. Moderate sized hiatal hernia. Microbiology Past 72 Hours 04/25/19 22:55 Urine, Clean Catch Urine Culture - Preliminary Presumptive E. coli 04/25/19 22:55 Sputum, Expectorated/Coughed Gram Stain - Final 04/25/19 20:25 Mucosa - Nasopharyngeal Respiratory Panel (PCR) - Final RSV A 04/25/19 22:55 Urine, Clean Catch Streptococcus pneumoniae Antigen (M - Final 04/25/19 22:55 Urine, Clean Catch Legionella Antigen - Final 04/25/19 15:40 Mucosa - Nose Influenza Types A,B Direct FA (JAY) - Final Laboratory Results 04/25/19 15:15: Lactic Acid 2.4 H* 04/25/19 18:30: Troponin I 0.045 04/25/19 18:30: Magnesium 2.6, Total Bilirubin 1.00, Direct Bilirubin 0.38 H, AST 25, ALT 19, Alkaline Phosphatase 81, Total Protein 6.5, Albumin 3.1 L, Globulin 3.4 04/25/19 21:06: Troponin I 0.022 04/25/19 21:06: Lactic Acid 1.8 04/25/19 22:55: Urine Color Yellow, Urine Clarity Cloudy, Urine pH 6.0, Ur Specific [place] 1.015, Urine Protein 15 H, Urine Glucose (UA) Normal, Urine Ketones Negative, Urine Occult Blood 25 H, Urine Nitrite Positive H, Urine Bilirubin Negative, Urine Urobilinogen Normal, Ur Leukocyte Esterase 500 H, Urine RBC 0 SEEN, Urine WBC 10-25 SEEN, Ur Squamous Epith Cells 0 SEEN, Urine Bacteria 2+, Urine Mucus 0 SEEN 04/25/19 23:10: MRSA (PCR) Negative 04/26/19 05:21: Sodium 133 L, Potassium 3.3 L, Chloride 96 L, Carbon Dioxide 31.0, Anion Gap 6, BUN 27 H, Creatinine 1.33 H, Estim Creat Clear Calc 27.68, Est GFR (MDRD) Af Amer 49 L, Est GFR (MDRD) Non-Af 41 L, BUN/Creatinine Ratio 20.3 H, Glucose 130 H, Calcium 7.5 L, Magnesium 2.4 04/26/19 05:21: PT 33.0 H, INR 3.2 Code Visit Inpatient E&M: 20397 Subs Hosp L3
[2019-04-26] MEDS: Ceftriaxone 1 GM/50 ML BAG IV (19:47)
[2019-04-27] VITALS (15 sets, daily range): BP systolic 92–103; BP diastolic 68–86; PULSE 94–162; RESP 18–20; TEMP 36.4–37.1; O2SAT 96–99
[2019-04-27] MEDS: Levothyroxine 150 MCG Tablet PO (06:03)
[2019-04-27 06:17] LABS: Absolute Lymphocyte Count 1.66 X10^3/uL (0.83-4.51); Absolute Neutrophil Count 4.9 X10^3/uL (2.0-7.7); Basophil# 0.01 X10^3/uL; Basophil% 0.1 % (0-1); Eosinophil# 0.05 X10^3/uL; Eosinophils% 0.7 % (0-5); Hematocrit 37.3 % (37-47); Hemoglobin 11.6 g/dL (12.0-15.0); Lymphocyte # 1.66 X10^3/ul (4.0); Lymphocyte % 23.5 % (19-41); Mean Corp Hgb Conc 31.1 g/dL (32-36); Mean Corpuscular Hgb 26.5 pg (27.0-32.0); Mean Corpuscular Volume 85.2 fL (81-99); Mean Platelet Vol. 10.3 fl (6.2-12.0); Monocyte# 0.37 X10^3/uL; Monocyte% 5.2 % (0-10); NRBC Flagged by Analyzer 0 % (0-5); Neutrophil # 4.91 X10^3/uL (2.7-7.7); Neutrophil % 69.8 % (47-70); Platelet Count 198 K/mm3 (150-450); RBC Distribution Width CV 15.1 % (11.6-14.6); RBC Distribution Width SD 46.4 fl (35.1-43.9); Red Blood Count 4.38 M/mm3 (4.2-5.4); White Blood Count 7.1 K/mm3 (4.4-11.0)
[2019-04-27 06:30] LABS: International Normalized Ratio 3.2; Prothrombin Time (Protime)PT. 32.6 SECONDS (11.7-14.9)
[2019-04-27 06:38] LABS: Anion Gap 5 (5-15); BUN 26 mg/dL (7-18); BUN/Creat Ratio 18.8 RATIO (10-20); Calcium,Total 8.1 mg/dL (8.5-10.1); Chloride 96 mmol/L (98-107); Creatinine, Serum 1.38 mg/dL (0.55-1.02); EST Glomerular Filtration Rate 39 mL/min (>60); Est Glom Filt Rate - Afr Amer 47 mL/min (>60); Estimated Creatinine Clearance 26.67 ml/min; Glucose 96 mg/dL (74-106); Potassium 3.9 mmol/L (3.5-5.1); Sodium Level 135 mmol/L (136-145)
[2019-04-27] MEDS: Ipratropium/Albuterol Sulfate 3 ML AMPUL.NEB INHALATION ×5 (06:43→22:34)
[2019-04-27] MEDS: Furosemide 40 MG/4 ML Vial IV (10:07)
[2019-04-27] MEDS: Polyethylene Glycol 3350 17 GM PACKET PO (10:07)
[2019-04-27] MEDS: Spironolactone 25 MG Tablet 50 MG PO (10:07)
[2019-04-27] MEDS: guaiFENesin 1,200 MG Tablet 1200 MG PO ×2 (10:07→21:03)
[2019-04-27] MEDS: Ceftriaxone 1 GM/50 ML BAG IV (10:08)
[2019-04-27] MEDS: Azithromycin 250 MG Tablet 500 MG PO (10:08)
--- NOTE | 2019-04-27 12:18 | PN_ITS ---
<Stacie Carvajal - Last Filed: 04/27/19 12:30> Patient Problems: Active and Suspected Problems CHF exacerbation (Acute) Acute bronchitis (Acute) Subjective: Patient seen and examined. Continues to have shortness of breath although feeling improved. Denies fever, chills. Cough improved. - Physical Exam Vitals/I&O's: Vital Signs Temp Pulse Resp BP Pulse Ox 97.6 F L 101 H 20 H 101/86 H 96 04/27/19 03:10 04/27/19 10:53 04/27/19 10:53 04/27/19 03:10 04/27/19 06:43 Oxygen Flow Rate (L/min) 2 Oxygen Delivery Method Nasal Cannula Weight: 131 lb 2.801 oz Body Mass Index (BMI) 21.7 Intake and Output for Last 24 Hours 04/25/19 04/26/19 04/27/19 23:59 23:59 23:59 Intake Total 1620 / 1620 1025.00 / 1025.00 150 / 150 Output Total 125 / 125 525 / 525 Balance 1495 / 1495 500.00 / 500.00 150 / 150 General: Alert, Oriented x3, Cooperative HEENT: Atraumatic, PERRLA, EOMI, Normocephalic Neck: Supple, No JVD, Negative Carotid Bruits Lungs: Diminished, Wheezes Cardiovascular: Regular Rhythm, Normal S1, Normal S2, Murmur, Tachycardic Abdomen: Bowel Sounds Present, Soft, Non Tender, Non-Distended Extremities: No clubbing, No cyanosis, Capillary Refill Less than 3 Seconds, Edema - Bilateral lower extremities Skin: No rashes, No breakdown Musculoskeletal: No Tenderness to Palpation of Joints or Extremities Neurological: Cranial nerves II-XII grossly intact, Neuro grossly intact Psych/Mental Status: Normal Affect, Appropriate Microbiology Past 72 Hours 04/25/19 22:55 Sputum, Expectorated/Coughed Gram Stain - Final 04/25/19 22:55 Sputum, Expectorated/Coughed Respiratory Culture - Final Mixed normal respiratory krystina. No Streptococcus pneumoniae, beta-hemolytic Streptococcus or Staphylococcus aureus isolated. 04/25/19 22:55 Urine, Clean Catch Urine Culture - Final Presumptive E. coli 04/25/19 20:25 Mucosa - Nasopharyngeal Respiratory Panel (PCR) - Final RSV A 04/25/19 22:55 Urine, Clean Catch Streptococcus pneumoniae Antigen (M - Final 04/25/19 22:55 Urine, Clean Catch Legionella Antigen - Final 04/25/19 15:40 Mucosa - Nose Influenza Types A,B Direct FA (JAY) - Final Laboratory Results 04/27/19 05:40: PT 32.6 H, INR 3.2 04/27/19 05:40: WBC 7.1, RBC 4.38, Hgb 11.6 L, Hct 37.3, MCV 85.2, MCH 26.5 L, MCHC 31.1 L, RDW Std Deviation 46.4 H, RDW Coeff of Kaykay 15.1 H, Plt Count 198, MPV 10.3, Immature Gran % (Auto) 0.700, Neut % (Auto) 69.8, Lymph % (Auto) 23.5, Grayson % (Auto) 5.2, Eos % (Auto) 0.7, Baso % (Auto) 0.1, Absolute Neuts (auto) 4.9, Absolute Lymphs (auto) 1.66, Nucleated RBC % 0 04/27/19 05:40: Sodium 135 L, Potassium 3.9, Chloride 96 L, Carbon Dioxide 34.0 H, Anion Gap 5, BUN 26 H, Creatinine 1.38 H, Estim Creat Clear Calc 26.67, Est GFR (MDRD) Af Amer 47 L, Est GFR (MDRD) Non-Af 39 L, BUN/Creatinine Ratio 18.8, Glucose 96, Calcium 8.1 L Current Medications Acetaminophen (Tylenol) 650 mg PO Q6H PRN PRN PRN Reason: Pain Score 1-3/Temp > 100.7 F Albuterol Sulfate (Ventolin Aerosols) 2.5 mg INHALATION Q2H PRN PRN PRN Reason: SOB/Wheezing Albuterol/Ipratropium (Duoneb) 3 ml INHALATION Q4H.RT OG Last Admin: 04/27/19 10:53 Dose: 3 ml Documented by: Azithromycin (Zithromax) 500 mg PO Q24 OG Stop: 04/29/19 10:01 Last Admin: 04/27/19 10:08 Dose: 500 mg Documented by: Furosemide (Lasix) 40 mg IV DAILY OG Last Admin: 04/27/19 10:07 Dose: 40 mg Documented by: Glucagon () 1 mg IM .X1 PRN PRN Reason: Hypoglycemia Guaifenesin (Mucinex) 1,200 mg PO BID [facility] Last Admin: 04/27/19 10:07 Dose: 1,200 mg Documented by: Dextrose (Dextrose 10%-Water) 250 mls @ 999 mls/hr IV .Q16M PRN; Protocol PRN Reason: HYPOGLYCEMIA Sodium Chloride () 250 mls @ 15 mls/hr IV .[id number] PRN PRN Reason: Saline Flush Last Infusion: 04/26/19 22:00 Dose: 0 mls/hr Documented by: Sodium Chloride () 250 mls @ 15 mls/hr IV .[id number] PRN PRN Reason: Additional IVPB Infusion Ceftriaxone Sodium (Rocephin) 1 gm in 50 mls @ 100 mls/hr IV Q24 [facility] Last Infusion: 04/27/19 10:39 Dose: Infused Documented by: Levothyroxine Sodium (Synthroid) 150 mcg PO DAILY@0600 [facility] Last Admin: 04/27/19 06:03 Dose: 150 mcg Documented by: Melatonin (Melatonin) 3 mg PO QHS PRN PRN PRN Reason: INSOMNIA Morphine Sulfate () 2 mg IV Q3H PRN PRN PRN Reason: Pain Score 6-10/10 Nitroglycerin (Nitrostat) 0.4 mg SUBLINGUAL Q5M PRN PRN Reason: CARDIAC/CHEST PAIN Oxycodone HCl (Oxyir) 5 mg PO Q4H PRN PRN PRN Reason: Pain Score 4-5/10 Polyethylene Glycol (Miralax) 17 gm PO DAILY [facility] Last Admin: 04/27/19 10:07 Dose: 17 gm Documented by: Senna/Docusate Sodium (Senokot-S, Nehal-Colace) 2 tablet PO BID PRN PRN PRN Reason: Constipation Sodium Chloride () 10 - 40 ml IV UD PRN PRN Reason: SALINE FLUSH Last Admin: 04/25/19 22:55 Dose: 10 ml Documented by: [facility]) [facility] Last Admin: 04/27/19 10:07 Dose: 50 mg Documented by: Medical Necessity - Tobacco Use Smoking Status: Never smoker Tobacco Use: Secondhand Assessment/Plan All Active Problems CHF exacerbation (Acute) Acute bronchitis (Acute) 1. Acute diastolic CHF-BNP 2955. Chest x-ray on admission appears improved from recent admission. Recent echo 04/13/2019 demonstrated EF 65 to 70%, severe aortic stenosis, PA pressure 75 mmHg, severe mitral valve insufficiency, moderate mitral valve prolapse, moderate global right ventricular systolic dysfunction. IV Lasix 40mg daily. Patient did not tolerate aggressive diuresis during recent admission given severe aortic stenosis. Hold IV Lasix for systolic blood pressure less than 90. Campbell wraps. Strict I&O. Daily weight. Continue spironolactone regimen which was recently added by primary care provider. Patient on 2 L nasal cannula supplemental oxygen although she has not been documented to be hypoxic during admission. Wean supplemental oxygen to maintain O2 at or above 90%. Walking pulse ox prior to discharge. 2. Acute bronchitis secondary to RSV-patient reports productive cough x7 days with nasal congestion, intermittent low-grade fever. Influenza negative. Respiratory panel positive for RSV. Sputum culture shows normal respiratory krystina. Chest x-ray without pneumonia. No leukocytosis. Afebrile on admission. Albuterol and DuoNeb aerosols. PRN guaifenesin. Will treat empirically with 5-day course of azithromycin. 3. Acute bilateral lower extremity DVT-VQ scan showed low probability for PE. Unable to obtain CT of chest given renal function. Plan to transition to Eliquis when INR is less than 2. 4. Severe aortic stenosis-evaluated by cardiology during recent admission, follow-up with [facility] for routine follow-up at discharge. 5. Supratherapeutic INR-resolved. 6. Hypothyroidism- home Synthroid regimen recently reduced from 200 mcg to 150 mcg daily. Recommend repeat TSH in 4 to 6 weeks as outpatient. 7. Chronic kidney disease stage III-at baseline, trend BMP. 8. Severe macular degeneration/poor eyesight-continue home health at discharge for assistance. 9. E. Coli Cystitis-urine culture with greater than 100,000 colony count E. coli. On IV Rocephin. Transition to Keflex tomorrow. DVT prophylaxis- coumadin CODE STATUS: DNR CC This patient was seen by Stacie Carvajal NP-Xiom[place] under the supervision of Dr. Betts. <Adiel Betts - Last Filed: 04/27/19 13:26> Subjective: Patient is still short of breath. Shortness of breath gets worse even on getting of the bed and sitting on the toilet. No fever chills in the morning. T-max 100.4 at 3 PM yesterday - Physical Exam Vitals/I&O's: Vital Signs Temp Pulse Resp BP Pulse Ox 98.5 F 101 H 20 H 103/81 H 96 04/27/19 09:10 04/27/19 10:53 04/27/19 10:53 04/27/19 09:10 04/27/19 09:10 Oxygen Flow Rate (L/min) 2 Oxygen Delivery Method Nasal Cannula Weight: 131 lb 2.801 oz Body Mass Index (BMI) 21.7 Intake and Output for Last 24 Hours 04/25/19 04/26/19 04/27/19 23:59 23:59 23:59 Intake Total 1620 / 1620 1025.00 / 1025.00 390 / 390 Output Total 125 / 125 525 / 525 200 / 200 Balance 1495 / 1495 500.00 / 500.00 190 / 190 General: Alert, Oriented x3, Cooperative HEENT: Atraumatic, PERRLA, EOMI, Normocephalic Neck: Supple, No JVD, Negative Carotid Bruits Lungs: Diminished - Air entry severely diminished., Short of Breath, Wheezes Cardiovascular: Regular rate, Regular Rhythm, Normal S1, Normal S2, Murmur, Tachycardic Abdomen: Bowel Sounds Present, Soft, Non Tender, Non-Distended Extremities: No clubbing, No cyanosis, Capillary Refill Less than 3 Seconds, Edema Skin: No rashes, No breakdown Musculoskeletal: No Tenderness to Palpation of Joints or Extremities, Arthritic Changes, Muscle Wasting Lymphatic: No Cervical, Supraclavicular, or Inguinal Adenopathy Neurological: Cranial nerves II-XII grossly intact, Deep Tendon Reflexes 2+/4 and Symmetrical, Neuro grossly intact, Motor Exam 5/5 strength throughout Psych/Mental Status: Normal Affect, Appropriate Microbiology Past 72 Hours 04/25/19 22:55 Sputum, Expectorated/Coughed Gram Stain - Final 04/25/19 22:55 Sputum, Expectorated/Coughed Respiratory Culture - Final Mixed normal respiratory krystina. No Streptococcus pneumoniae, beta-hemolytic Streptococcus or Staphylococcus aureus isolated. 04/25/19 22:55 Urine, Clean Catch Urine Culture - Final Presumptive E. coli 04/25/19 20:25 Mucosa - Nasopharyngeal Respiratory Panel (PCR) - Final RSV A 04/25/19 22:55 Urine, Clean Catch Streptococcus pneumoniae Antigen (M - Final 04/25/19 22:55 Urine, Clean Catch Legionella Antigen - Final 04/25/19 15:40 Mucosa - Nose Influenza Types A,B Direct FA (JAY) - Final Laboratory Results 04/27/19 05:40: PT 32.6 H, INR 3.2 04/27/19 05:40: WBC 7.1, RBC 4.38, Hgb 11.6 L, Hct 37.3, MCV 85.2, MCH 26.5 L, MCHC 31.1 L, RDW Std Deviation 46.4 H, RDW Coeff of Kaykay 15.1 H, Plt Count 198, MPV 10.3, Immature Gran % (Auto) 0.700, Neut % (Auto) 69.8, Lymph % (Auto) 23.5, [place]ayson % (Auto) 5.2, Eos % (Auto) 0.7, Baso % (Auto) 0.1, Absolute Neuts (auto) 4.9, Absolute Lymphs (auto) 1.66, Nucleated RBC % 0 04/27/19 05:40: Sodium 135 L, Potassium 3.9, Chloride 96 L, Carbon Dioxide 34.0 H, Anion Gap 5, BUN 26 H, Creatinine 1.38 H, Estim Creat Clear Calc 26.67, Est GFR (MDRD) Af Amer 47 L, Est GFR (MDRD) Non-Af 39 L, BUN/Creatinine Ratio 18.8, Glucose 96, Calcium 8.1 L Current Medications Acetaminophen (Tylenol) 650 mg PO Q6H PRN PRN PRN Reason: Pain Score 1-3/Temp > 100.7 F Albuterol Sulfate (Ventolin Aerosols) 2.5 mg INHALATION Q2H PRN PRN PRN Reason: SOB/Wheezing Albuterol/Ipratropium (Duoneb) 3 ml INHALATION Q4H.RT OG Last Admin: 04/27/19 10:53 Dose: 3 ml Documented by: Azithromycin (Zithromax) 500 mg PO Q24 OG Stop: 04/29/19 10:01 Last Admin: 04/27/19 10:08 Dose: 500 mg Documented by: Furosemide (Lasix) 40 mg IV DAILY OG Last Admin: 04/27/19 10:07 Dose: 40 mg Documented by: Glucagon () 1 mg IM .X1 PRN PRN Reason: Hypoglycemia Guaifenesin (Mucinex) 1,200 mg PO BID [facility] Last Admin: 04/27/19 10:07 Dose: 1,200 mg Documented by: Dextrose (Dextrose 10%-Water) 250 mls @ 999 mls/hr IV .Q16M PRN; Protocol PRN Reason: HYPOGLYCEMIA Sodium Chloride () 250 mls @ 15 mls/hr IV .[id number] PRN PRN Reason: Saline Flush Last Infusion: 04/26/19 22:00 Dose: 0 mls/hr Documented by: Sodium Chloride () 250 mls @ 15 mls/hr IV .[id number] PRN PRN Reason: Additional IVPB Infusion Ceftriaxone Sodium (Rocephin) 1 gm in 50 mls @ 100 mls/hr IV Q24 [facility] Last Infusion: 04/27/19 10:39 Dose: Infused Documented by: Levothyroxine Sodium (Synthroid) 150 mcg PO DAILY@0600 [facility] Last Admin: 04/27/19 06:03 Dose: 150 mcg Documented by: Melatonin (Melatonin) 3 mg PO QHS PRN PRN PRN Reason: INSOMNIA Morphine Sulfate () 2 mg IV Q3H PRN PRN PRN Reason: Pain Score 6-10/10 Nitroglycerin (Nitrostat) 0.4 mg SUBLINGUAL Q5M PRN PRN Reason: CARDIAC/CHEST PAIN Oxycodone HCl (Oxyir) 5 mg PO Q4H PRN PRN PRN Reason: Pain Score 4-5/10 Polyethylene Glycol (Miralax) 17 gm PO DAILY [facility] Last Admin: 04/27/19 10:07 Dose: 17 gm Documented by: Senna/Docusate Sodium (Senokot-S, Nehal-Colace) 2 tablet PO BID PRN PRN PRN Reason: Constipation Sodium Chloride () 10 - 40 ml IV UD PRN PRN Reason: SALINE FLUSH Last Admin: 04/25/19 22:55 Dose: 10 ml Documented by: Spironolactone (Aldactone) [facility] Last Admin: 04/27/19 10:07 Dose: 50 mg Documented by: Assessment/Plan This patient was seen in conjunction with Stacie MELTON. I have independently interviewed and examined the patient and reviewed pertinent history, examination findings, laboratory and plan of management. I have reviewed the note and agree with the documented findings with the few additional points. In brief, patient is admitted for acute bronchitis symptoms secondary to RSV. Repeat chest x-ray shows improved aeration with mild residual CHF. Patient had about 1.5 L normal saline bolus as patient looks dehydrated with lactic acid 2.4 suggestive of severe sepsis most likely secondary to viral acute viral bronchitis RSV.. Lactic acid improved. Respiratory panel is positive RSV?A. Malvin antigens are negative. Urine culture shows more than 100,000 colonies of E. coli. Currently on Zithromax and Zosyn. Narrow down antibiotic discontinue Zosyn and start Rocephin. VQ scan shows low priority of PE. 04/27 Continue Rocephin. Discontinue Zithromax as she completed 3 doses. She states she is non-smoker does not have diagnosis of COPD but never had PFT and her was a smoker. Home O2 evaluation Patient is DNR CC. I have discussed my assessment with Stacie MELTON and orders have been reviewed. Code Visit Inpatient E&M: 83524 Subs Hosp L2
[2019-04-27] MEDS: Metoprolol Tartrate 25 MG Tablet PO (18:15)
[2019-04-28] VITALS (12 sets, daily range): BP systolic 96–101; BP diastolic 55–79; PULSE 89–103; RESP 18–20; TEMP 36.4–36.9; O2SAT 96–98
[2019-04-28] MEDS: 0.9% Saline Lock 10 ML Syringe IV ×2 (04:37→20:58)
[2019-04-28] MEDS: Levothyroxine 150 MCG Tablet PO (04:37)
[2019-04-28 06:50] LABS: Prothrombin Time (Protime)PT. 36.7 SECONDS (11.7-14.9)
[2019-04-28] MEDS: Ipratropium/Albuterol Sulfate 3 ML AMPUL.NEB INHALATION ×2 (07:03→19:03)
[2019-04-28 07:05] LABS: International Normalized Ratio 3.7
[2019-04-28] MEDS: Ceftriaxone 1 GM/50 ML BAG IV (09:26)
[2019-04-28] MEDS: Polyethylene Glycol 3350 17 GM PACKET PO (09:26)
[2019-04-28] MEDS: Spironolactone 25 MG Tablet 50 MG PO (09:26)
[2019-04-28] MEDS: Furosemide 40 MG/4 ML Vial IV (09:26)
[2019-04-28] MEDS: guaiFENesin 1,200 MG Tablet 1200 MG PO ×2 (09:26→20:58)
--- NOTE | 2019-04-28 11:26 | PCM.PROGNOTE ---
<Stacie Carvajal - Last Filed: 04/28/19 11:33> Patient Problems: Active and Suspected Problems CHF exacerbation (Acute) Acute bronchitis (Acute) Subjective: Patient seen and examined. Continues to have shortness of breath with minimal exertion and generalized weakness. PT recommending TCU. - Physical Exam Vitals/I&O's: Vital Signs Temp Pulse Resp BP Pulse Ox 98.5 F 89 18 100/55 L 96 04/28/19 09:33 04/28/19 09:33 04/28/19 09:33 04/28/19 09:33 04/28/19 09:33 Oxygen Flow Rate (L/min) 1 Oxygen Delivery Method Nasal Cannula Weight: 130 lb 8.218 oz Body Mass Index (BMI) 21.7 Intake and Output for Last 24 Hours 04/26/19 04/27/19 04/28/19 23:59 23:59 23:59 Intake Total 1025.00 / 1025.00 630 / 830 570 / 570 Output Total 525 / 525 400 / 400 Balance 500.00 / 500.00 230 / 430 570 / 570 General: Alert, Oriented x3, Cooperative, - - Appears fatigued HEENT: Atraumatic, PERRLA, EOMI, Normocephalic Neck: Supple, No JVD, Negative Carotid Bruits Lungs: Clear to auscultation, Diminished Cardiovascular: Regular rate, Regular Rhythm, Normal S1, Normal S2 Abdomen: Bowel Sounds Present, Soft, Non Tender, Non-Distended Extremities: No clubbing, No cyanosis, Capillary Refill Less than 3 Seconds, Edema - Bilateral lower extremities Skin: No rashes, No breakdown Musculoskeletal: No Tenderness to Palpation of Joints or Extremities Neurological: Cranial nerves II-XII grossly intact, Neuro grossly intact Psych/Mental Status: Normal Affect, Appropriate Microbiology Past 72 Hours 04/25/19 22:55 Sputum, Expectorated/Coughed Gram Stain - Final 04/25/19 22:55 Sputum, Expectorated/Coughed Respiratory Culture - Final Mixed normal respiratory krystina. No Streptococcus pneumoniae, beta-hemolytic Streptococcus or Staphylococcus aureus isolated. 04/25/19 22:55 Urine, Clean Catch Urine Culture - Final Presumptive E. coli 04/25/19 20:25 Mucosa - Nasopharyngeal Respiratory Panel (PCR) - Final RSV A 04/25/19 22:55 Urine, Clean Catch Streptococcus pneumoniae Antigen (M - Final 04/25/19 22:55 Urine, Clean Catch Legionella Antigen - Final 04/25/19 15:40 Mucosa - Nose Influenza Types A,B Direct FA (JAY) - Final Laboratory Results 04/28/19 06:13: PT 36.7 H, INR 3.7 H* Current Medications Acetaminophen (Tylenol) 650 mg PO Q6H PRN PRN PRN Reason: Pain Score 1-3/Temp > 100.7 F Albuterol Sulfate (Ventolin Aerosols) 2.5 mg INHALATION Q2H PRN PRN PRN Reason: SOB/Wheezing Albuterol/Ipratropium (Duoneb) 3 ml INHALATION Q4H.RT [facility] Last Admin: 04/28/19 07:03 Dose: 3 ml Documented by: Furosemide (Lasix) 40 mg IV DAILY [facility] Last Admin: 04/28/19 09:26 Dose: 40 mg Documented by: Glucagon () 1 mg IM .X1 PRN PRN Reason: Hypoglycemia Guaifenesin (Mucinex) 1,200 mg PO BID [facility] Last Admin: 04/28/19 09:26 Dose: 1,200 mg Documented by: Dextrose (Dextrose 10%-Water) 250 mls @ 999 mls/hr IV .Q16M PRN; Protocol PRN Reason: HYPOGLYCEMIA Sodium Chloride () 250 mls @ 15 mls/hr IV .[id number] PRN PRN Reason: Saline Flush Last Infusion: 04/26/19 22:00 Dose: 0 mls/hr Documented by: Sodium Chloride () 250 mls @ 15 mls/hr IV .[id number] PRN PRN Reason: Additional IVPB Infusion Ceftriaxone Sodium (Rocephin) 1 gm in 50 mls @ 100 mls/hr IV Q24 [facility] Last Infusion: 04/28/19 10:32 Dose: Infused Documented by: Levothyroxine Sodium (Synthroid) 150 mcg PO DAILY@0600 [facility] Last Admin: 04/28/19 04:37 Dose: 150 mcg Documented by: Melatonin (Melatonin) 3 mg PO QHS PRN PRN PRN Reason: INSOMNIA Morphine Sulfate () 2 mg IV Q3H PRN PRN PRN Reason: Pain Score 6-10/10 Nitroglycerin (Nitrostat) 0.4 mg SUBLINGUAL Q5M PRN PRN Reason: CARDIAC/CHEST PAIN Oxycodone HCl (Oxyir) 5 mg PO Q4H PRN PRN PRN Reason: Pain Score 4-5/10 Polyethylene Glycol (Miralax) 17 gm PO DAILY [facility] Last Admin: 04/28/19 09:26 Dose: 17 gm Documented by: Senna/Docusate Sodium (Senokot-S, Nehal-Colace) 2 tablet PO BID PRN PRN PRN Reason: Constipation Sodium Chloride () 10 - 40 ml IV UD PRN PRN Reason: SALINE FLUSH Last Admin: 04/28/19 04:37 Dose: 10 ml Documented by: [facility]) [facility] Last Admin: 04/28/19 09:26 Dose: 50 mg Documented by: Medical Necessity - Tobacco Use Smoking Status: Never smoker Tobacco Use: Secondhand Assessment/Plan All Active Problems CHF exacerbation (Acute) Acute bronchitis (Acute) 1. Acute diastolic CHF-BNP 2955. Chest x-ray on admission appears improved from recent admission. Recent echo 04/13/2019 demonstrated EF 65 to 70%, severe aortic stenosis, PA pressure 75 mmHg, severe mitral valve insufficiency, moderate mitral valve prolapse, moderate global right ventricular systolic dysfunction. IV Lasix 40mg daily. Patient did not tolerate aggressive diuresis during recent admission given severe aortic stenosis. Hold IV Lasix for systolic blood pressure less than 90. Campbell wraps. Strict I&O. Daily weight. Continue spironolactone regimen which was recently added by primary care provider. Patient on 2 L nasal cannula supplemental oxygen although she has not been documented to be hypoxic during admission. Wean supplemental oxygen to maintain O2 at or above 90%. Walking pulse ox prior to discharge. 2. Acute bronchitis secondary to RSV-patient reports productive cough x7 days with nasal congestion, intermittent low-grade fever. Influenza negative. Respiratory panel positive for RSV. Sputum culture shows normal respiratory krystina. Chest x-ray without pneumonia. No leukocytosis. Afebrile on admission. Albuterol and DuoNeb aerosols. PRN guaifenesin. Will treat empirically with 5-day course of azithromycin. 3. Acute bilateral lower extremity DVT-VQ scan showed low probability for PE. Unable to obtain CT of chest given renal function. Plan to transition to Eliquis when INR is less than 2. 4. Severe aortic stenosis-evaluated by cardiology during recent admission, follow[place] [facility] [place] [facility] [place]-up at discharge. 5. Supratherapeutic INR-trend INR. 6. Hypothyroidism- home Synthroid regimen recently reduced from 200 mcg to 150 mcg daily. Recommend repeat TSH in 4 to 6 weeks as outpatient. 7. Chronic kidney disease stage III-at baseline, trend BMP. 8. Severe macular degeneration/poor eyesight-continue home health at discharge for assistance. 9. E. Coli Cystitis-urine culture with greater than 100,000 colony count E. coli. DC IV Rocephin. Transition to Duricef. DVT prophylaxis- coumadin, INR supratherapeutic CODE STATUS: DNR CC Discharge planning: PT recommending TCU, will discuss with patient and daughter This patient was seen by ANAND Burns under the supervision of Dr. Betts. <Adiel Betts - Last Filed: 04/28/19 15:21> Subjective: Patient is still short of breath although there is slight improvement. Dyspnea on exertion. Generalized weakness. Possible SNF placement. Discussed with the patient and daughter. Patient's daughter agrees but patient herself refused. - Physical Exam Vitals/I&O's: Vital Signs Temp Pulse Resp BP Pulse Ox 98.5 F 89 18 100/55 L 96 04/28/19 09:33 04/28/19 09:33 04/28/19 09:33 04/28/19 09:33 04/28/19 09:33 Oxygen Flow Rate (L/min) 1 Oxygen Delivery Method Nasal Cannula Weight: 130 lb 8.218 oz Body Mass Index (BMI) 21.7 Intake and Output for Last 24 Hours 04/26/19 04/27/19 04/28/19 23:59 23:59 23:59 Intake Total 1025.00 / 1025.00 630 / 830 570 / 570 Output Total 525 / 525 400 / 400 Balance 500.00 / 500.00 230 / 430 570 / 570 General: Alert, Oriented x3, Cooperative, - HEENT: Atraumatic, PERRLA, EOMI, Normocephalic Oral: No Gingival or Mucosal Lesions/ Ulcerations, Dry Mucosa Neck: Supple, No JVD, Negative Carotid Bruits, Negative Hepatojugular Reflux Lungs: No rhonchi, No wheeze, No rales, Diminished - Air entry severely diminished. Cardiovascular: Regular rate, Regular Rhythm, Normal S1, Normal S2, Murmur Abdomen: Bowel Sounds Present, Non-Distended Extremities: No clubbing, No cyanosis, Capillary Refill Less than 3 Seconds, Edema Skin: No rashes, No breakdown Musculoskeletal: No Tenderness to Palpation of Joints or Extremities, Arthritic Changes, Cachexia, Muscle Wasting Neurological: Neuro grossly intact Microbiology Past 72 Hours 04/25/19 18:40 Blood Culture (Wb) - Anticubital Right Blood Culture - Preliminary No growth in 48 hours. 04/25/19 18:30 Blood Culture (Wb) - Left Forearm Blood Culture - Preliminary No growth in 48 hours. 04/25/19 22:55 Sputum, Expectorated/Coughed Gram Stain - Final 04/25/19 22:55 Sputum, Expectorated/Coughed Respiratory Culture - Final Mixed normal respiratory krystina. No Streptococcus pneumoniae, beta-hemolytic Streptococcus or Staphylococcus aureus isolated. 04/25/19 22:55 Urine, Clean Catch Urine Culture - Final Presumptive E. coli 04/25/19 20:25 Mucosa - Nasopharyngeal Respiratory Panel (PCR) - Final RSV A 04/25/19 22:55 Urine, Clean Catch Streptococcus pneumoniae Antigen (M - Final 04/25/19 22:55 Urine, Clean Catch Legionella Antigen - Final 04/25/19 15:40 Mucosa - Nose Influenza Types A,B Direct FA (JAY) - Final Laboratory Results 04/28/19 06:13: PT 36.7 H, INR 3.7 H* Current Medications Acetaminophen (Tylenol) 650 mg PO Q6H PRN PRN PRN Reason: Pain Score 1-3/Temp > 100.7 F Albuterol Sulfate (Ventolin Aerosols) 2.5 mg INHALATION Q2H PRN PRN PRN Reason: SOB/Wheezing Albuterol/Ipratropium (Duoneb) 3 ml INHALATION Q4H.RT [facility] Last Admin: 04/28/19 11:45 Dose: Not Given Documented by: Cefadroxil (Duricef) 500 mg PO BID [facility] Furosemide (Lasix) 40 mg IV DAILY [facility] Last Admin: 04/28/19 09:26 Dose: 40 mg Documented by: Glucagon () 1 mg IM .X1 PRN PRN Reason: Hypoglycemia Guaifenesin (Mucinex) 1,200 mg PO BID [facility] Last Admin: 04/28/19 09:26 Dose: 1,200 mg Documented by: Dextrose (Dextrose 10%-Water) 250 mls @ 999 mls/hr IV .Q16M PRN; Protocol PRN Reason: HYPOGLYCEMIA Sodium Chloride () 250 mls @ 15 mls/hr IV .[id number] PRN PRN Reason: Saline Flush Last Infusion: 04/26/19 22:00 Dose: 0 mls/hr Documented by: Sodium Chloride () 250 mls @ 15 mls/hr IV .[id number] PRN PRN Reason: Additional IVPB Infusion Levothyroxine Sodium (Synthroid) 150 mcg PO DAILY@0600 [facility] Last Admin: 04/28/19 04:37 Dose: 150 mcg Documented by: Melatonin (Melatonin) 3 mg PO QHS PRN PRN PRN Reason: INSOMNIA Morphine Sulfate () 2 mg IV Q3H PRN PRN PRN Reason: Pain Score 6-10/10 Nitroglycerin (Nitrostat) 0.4 mg SUBLINGUAL Q5M PRN PRN Reason: CARDIAC/CHEST PAIN Oxycodone HCl (Oxyir) 5 mg PO Q4H PRN PRN PRN Reason: Pain Score 4-5/10 Polyethylene Glycol (Miralax) 17 gm PO DAILY [facility] Last Admin: 04/28/19 09:26 Dose: 17 gm Documented by: Senna/Docusate Sodium (Senokot-S, Nehal-Colace) 2 tablet PO BID PRN PRN PRN Reason: Constipation Sodium Chloride () 10 - 40 ml IV UD PRN PRN Reason: SALINE FLUSH Last Admin: 04/28/19 04:37 Dose: 10 ml Documented by: Sp[facility]act[facility] ([facility]) [facility] [place] Last Admin: 04/28/19 09:26 Dose: 50 mg Documented by: Assessment/Plan This patient was seen in conjunction with DISTRIBUTOR SALES MANAGERStacie. I have independently interviewed and examined the patient and reviewed pertinent history, examination findings, laboratory and plan of management. I have reviewed the note and agree with the documented findings with the few additional points. In brief, patient is admitted for acute bronchitis symptoms secondary to RSV. Repeat chest x-ray shows improved aeration with mild residual CHF. Patient had about 1.5 L normal saline bolus as patient looks dehydrated with lactic acid 2.4 suggestive of severe sepsis most likely secondary to viral acute viral bronchitis RSV.. Lactic acid improved. Respiratory panel is positive RSV?A. Malvin antigens are negative. Urine culture shows more than 100,000 colonies of E. coli. Currently on Zithromax and Zosyn. Narrow down antibiotic discontinue Zosyn and start Rocephin. VQ scan shows low priority of PE. 04/27 Continue Rocephin. Discontinue Zithromax as she completed 3 doses. She states she is non-smoker does not have diagnosis of COPD but never had PFT and her was a smoker. Home O2 evaluation Patient is DNR CC. 04/28: Continue antibiotic. Patient probably needs SNF as she is very weak and gets easily dyspnea on exertion even getting out of bed. route manager consult. I have discussed my assessment with DISTRIBUTOR SALES MANAGERSatcie and orders have been reviewed. Code Visit Inpatient E&M: 26458 Subs Hosp L3
[2019-04-28] MEDS: Cefadroxil 500 MG CAPSULE 1000 MG PO (13:36)
[2019-04-28] MEDS: Cefadroxil 500 MG CAPSULE PO (20:58)
--- NOTE | 2019-04-28 22:25 | NURSING ---
Per infection control policy, patient does not need to be in contact and droplet for RSV. Contact is only needed for RSV for infants, young children, and immunocompromised adults.
[2019-04-29] VITALS (18 sets, daily range): BP systolic 95–106; BP diastolic 71–83; PULSE 83–112; RESP 18–24; TEMP 36.6–36.7; O2SAT 89–98
[2019-04-29] MEDS: Levothyroxine 150 MCG Tablet PO (05:44)
[2019-04-29] MEDS: Ipratropium/Albuterol Sulfate 3 ML AMPUL.NEB INHALATION ×4 (06:38→23:17)
[2019-04-29 07:34] LABS: International Normalized Ratio 2.9; Prothrombin Time (Protime)PT. 30.7 SECONDS (11.7-14.9)
[2019-04-29 07:43] LABS: Anion Gap 9 (5-15); BUN 35 mg/dL (7-18); BUN/Creat Ratio 26.3 RATIO (10-20); Calcium,Total 8.1 mg/dL (8.5-10.1); Chloride 94 mmol/L (98-107); Creatinine, Serum 1.33 mg/dL (0.55-1.02); EST Glomerular Filtration Rate 41 mL/min (>60); Est Glom Filt Rate - Afr Amer 49 mL/min (>60); Estimated Creatinine Clearance 27.68 ml/min; Glucose 96 mg/dL (74-106); Potassium 3.5 mmol/L (3.5-5.1); Sodium Level 131 mmol/L (136-145)
[2019-04-29] MEDS: Cefadroxil 500 MG CAPSULE PO ×2 (09:30→21:20)
[2019-04-29] MEDS: guaiFENesin 1,200 MG Tablet 1200 MG PO ×2 (09:30→21:20)
[2019-04-29] MEDS: Polyethylene Glycol 3350 17 GM PACKET PO (09:31)
--- NOTE | 2019-04-29 09:38 | CASEMGMT ---
RN CM NOTE: Per Dr Wilcox, pt is agreeable to SNF and 1st choice is [facility]. Call placed to Natalie @ [facility] and she was made aware. Radha RODRIGUEZ RN CM
--- NOTE | 2019-04-29 09:45 | CASEMGMT ---
Physician spoke with patient and daughter and patient is agreeable to going to [facility] for rehab. SW called [facility] and left a message with referral. SW also faxed referral to [facility]. 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 Await return call from [facility]. Lien PHILLIPS MSW
--- NOTE | 2019-04-29 11:53 | CASEMGMT ---
Received call from [facility] at [facility] and they are able to accept patient. Her in and out of network benefits are the same except her max out of pocket is different. In network it is $3,000 and out of network it is $6,000. Days 1-10 covered at 100%, days 11-20 $25 a day co-pay and days 21-100 $50 a day co-pay. DANIEL spoke with patient and her daughter Iman. Introduced self and role at [facility]. Patient agreed she would be willing to go to [facility] for rehab. DANIEL explained patient's benefits and Iman said to call Patrica with this information as she handles patient's finances. DANIEL spoke with patient's daughter, Patrica on the phone and let her know about the coverage and she was fine with this. DANIEL called [facility] and told her to please start the pre-cert. Plan: [facility] pending insurance approval. Lien PHILLIPS MSW
--- NOTE | 2019-04-29 14:32 | CHAPLAIN ---
Type of Pastoral Visit _x__ Initial Visit ___ Follow-up Visit ___ On-call Visit ___ General Patient Visit ___ Spiritual Assessment ___ Family Conference ___ Bereavement ___ Rapid Response ___ Code Blue ___ Other (describe below) Pastoral Care Referral From _x__ Patient ___ Family ___ Nurse ___ Physician ___ Stitcher Around ___ Economic Developer ___ Other (describe below) Sacrament/Intervention _x__ Active listening ___ Anointing ___ Buddhism ___ Bereavement ___ Communion _x__ [facility] exploration ___ _x__ Life review _x__ Prayer ___ Reconciliation ___ Sacrament of Sick _x__ Supportive presence ___ Wedding ___ Other (describe below) Pastoral Comments
[2019-04-29] MEDS: Albuterol 2.5 MG/3 ML VIAL.NEB. INHALATION (14:44)
[2019-04-29] MEDS: BENZOCAINE/MENTHOL 1 LOZENGE 2 LOZENGE MUCOUS MEM (15:51)
--- NOTE | 2019-04-29 18:21 | PCM.PROGNOTE ---
Patient Problems: Active and Suspected Problems CHF exacerbation (Acute) Acute bronchitis (Acute) Subjective: Patient was seen and examined today, I talked with her and her daughters who are in the room today, patient has agreed to go to short-term shelter facility due to continued weakness. We will try to get her into [facility]. Patient's INR today was 2.9, I have decided to hold the institution of Eliquis today. Patient's creatinine is remained stable. Patient is on room air at this time, ambulating on room air her pulse ox is 89%. - Physical Exam Vitals/I&O's: Vital Signs Temp Pulse Resp BP Pulse Ox 98.0 F 109 H 18 100/79 96 04/29/19 15:19 04/29/19 15:19 04/29/19 15:19 04/29/19 15:19 04/29/19 15:19 Oxygen Flow Rate (L/min) 1 Oxygen Delivery Method Room Air Weight: 58 kg Body Mass Index (BMI) 21.7 Intake and Output for Last 24 Hours 04/27/19 04/28/19 04/29/19 23:59 23:59 23:59 Intake Total 630 / 830 870 / 870 460 / 460 Output Total 400 / 400 Balance 230 / 430 870 / 870 460 / 460 General: Alert, Oriented x3, Cooperative, No apparent distress, Well developed HEENT: Atraumatic, PERRLA, EOMI, Normocephalic Oral: Moist Mucosa Neck: Supple, Trachea Midline, Thyroid Normal Size and Texture Lungs: Clear to auscultation, Normal air movement, No rhonchi, No wheeze, No rales Cardiovascular: Regular rate, Regular Rhythm, Normal S1, Normal S2, No murmurs, PMI Normal Abdomen: Bowel Sounds Present, Soft, Non Tender, Non-Distended Extremities: No clubbing, No cyanosis, No edema, Capillary Refill Less than 3 Seconds Skin: No rashes, No breakdown Musculoskeletal: No Tenderness to Palpation of Joints or Extremities Neurological: Cranial nerves II-XII grossly intact, Neuro grossly intact, Sensory exam intact to light touch and pain Psych/Mental Status: Normal Affect, Appropriate, Alert and oriented to time, place, person, mood and affect Microbiology Past 72 Hours 04/25/19 18:40 Blood Culture (Wb) - Anticubital Right Blood Culture - Preliminary No growth in 48 hours. 04/25/19 18:30 Blood Culture (Wb) - Left Forearm Blood Culture - Preliminary No growth in 48 hours. 04/25/19 22:55 Sputum, Expectorated/Coughed Gram Stain - Final 04/25/19 22:55 Sputum, Expectorated/Coughed Respiratory Culture - Final Mixed normal respiratory krystina. No Streptococcus pneumoniae, beta-hemolytic Streptococcus or Staphylococcus aureus isolated. 04/25/19 22:55 Urine, Clean Catch Urine Culture - Final Presumptive E. coli Laboratory Results 04/29/19 06:34: PT 30.7 H, INR 2.9 04/29/19 06:34: Sodium 131 L, Potassium 3.5, Chloride 94 L, Carbon Dioxide 28.0, Anion Gap 9, BUN 35 H, Creatinine 1.33 H, Estim Creat Clear Calc 27.68, Est GFR (MDRD) Af Amer 49 L, Est GFR (MDRD) Non-Af 41 L, BUN/Creatinine Ratio 26.3 H, Glucose 96, Calcium 8.1 L Current Medications Acetaminophen (Tylenol) 650 mg PO Q6H PRN PRN PRN Reason: Pain Score 1-3/Temp > 100.7 F Albuterol Sulfate (Ventolin Aerosols) 2.5 mg INHALATION Q2H PRN PRN PRN Reason: SOB/Wheezing Last Admin: 04/29/19 14:44 Dose: 2.5 mg Documented by: Albuterol/Ipratropium (Duoneb) 3 ml INHALATION Q4H.RT [facility] Last Admin: 04/29/19 14:44 Dose: 3 ml Documented by: Cefadroxil (Duricef) 500 mg PO BID [facility] Last Admin: 04/29/19 09:30 Dose: 500 mg Documented by: Furosemide (Lasix) 40 mg IV DAILY [facility] Last Admin: 04/29/19 09:15 Dose: Not Given Documented by: Glucagon () 1 mg IM .X1 PRN PRN Reason: Hypoglycemia Guaifenesin (Mucinex) 1,200 mg PO BID [facility] Last Admin: 04/29/19 09:30 Dose: 1,200 mg Documented by: Dextrose (Dextrose 10%-Water) 250 mls @ 999 mls/hr IV .Q16M PRN; Protocol PRN Reason: HYPOGLYCEMIA Sodium Chloride () 250 mls @ 15 mls/hr IV .[id number] PRN PRN Reason: Saline Flush Last Infusion: 04/26/19 22:00 Dose: 0 mls/hr Documented by: Sodium Chloride () 250 mls @ 15 mls/hr IV .[id number] PRN PRN Reason: Additional IVPB Infusion Levothyroxine Sodium (Synthroid) 150 mcg PO DAILY@0600 [facility] Last Admin: 04/29/19 05:44 Dose: 150 mcg Documented by: Melatonin (Melatonin) 3 mg PO QHS PRN PRN PRN Reason: INSOMNIA Morphine Sulfate () 2 mg IV Q3H PRN PRN PRN Reason: Pain Score 6-10/10 Nitroglycerin (Nitrostat) 0.4 mg SUBLINGUAL Q5M PRN PRN Reason: CARDIAC/CHEST PAIN Oxycodone HCl (Oxyir) 5 mg PO Q4H PRN PRN PRN Reason: Pain Score 4-5/10 Polyethylene Glycol (Miralax) 17 gm PO DAILY [facility] Last Admin: 04/29/19 09:31 Dose: 17 gm Documented by: Senna/Docusate Sodium (Senokot-S, Nehal-Colace) 2 tablet PO BID PRN PRN PRN Reason: Constipation Sodium Chloride () 10 - 40 ml IV UD PRN PRN Reason: SALINE FLUSH Last Admin: 04/28/19 20:58 Dose: 10 ml Documented by: [facility]) [facility] Last Admin: 04/29/19 09:15 Dose: Not Given Documented by: Throat Lozenges (Cepacol Sore Throat Lozenge) 2 lozenge MUCOUS MEM Q2H PRN PRN PRN Reason: COUGH Last Admin: 04/29/19 15:51 Dose: 2 lozenge Documented by: Medical Necessity - Tobacco Use Smoking Status: Never smoker Tobacco Use: Secondhand Assessment/Plan All Active Problems CHF exacerbation (Acute) Acute bronchitis (Acute) 1 acute diastolic congestive heart failure-etiology unclear, continue present treatment #2 severe aortic stenosis #3 pulmonary hypertension #4 acute tracheobronchitis secondary to RSV #5 acute bilateral lower extremity DVT-recheck INR tomorrow #6 chronic kidney disease stage III #7 E. coli cystitis #8 acute debility-PT and OT will continue to work with the patient, she is agreed to go to a shelter facility for short-term rehab services. Code Visit Inpatient E&M: 66280 Subs Hosp L2
--- NOTE | 2019-04-29 21:05 | NURSING ---
Received call from [facility] re: MRI results. Transferred call to Dr. Montez to take results.
[2019-04-29] MEDS: 0.9% Saline Lock 10 ML Syringe IV (21:24)
[2019-04-30] VITALS (14 sets, daily range): BP systolic 101–113; BP diastolic 57–98; PULSE 98–144; RESP 18–20; TEMP 36.3–36.4; O2SAT 94–96
[2019-04-30] MEDS: Levothyroxine 150 MCG Tablet PO (05:28)
[2019-04-30] MEDS: Ipratropium/Albuterol Sulfate 3 ML AMPUL.NEB INHALATION ×3 (06:56→15:04)
[2019-04-30] MEDS: Spironolactone 25 MG Tablet 50 MG PO (07:52)
[2019-04-30] MEDS: Polyethylene Glycol 3350 17 GM PACKET PO (09:57)
[2019-04-30] MEDS: guaiFENesin 1,200 MG Tablet 1200 MG PO (09:57)
[2019-04-30] MEDS: Furosemide 40 MG/4 ML Vial IV (09:57)
[2019-04-30] MEDS: Cefadroxil 500 MG CAPSULE PO (09:57)
[2019-04-30] MEDS: 0.9% Saline Lock 10 ML Syringe IV (09:57)
[2019-04-30 13:35] LABS: International Normalized Ratio 2.3; Prothrombin Time (Protime)PT. 25.2 SECONDS (11.7-14.9)
--- NOTE | 2019-04-30 14:42 | CASEMGMT ---
SW received a call and patient was approved to go to [facility]. SW notified patient and her daughter, Patrica as well. Convalescent done on HENS. Staff will arrange transport once orders are in computer. Lien PHILLIPS MSW
--- NOTE | 2019-04-30 14:57 | PCM.TXEXTCAR ---
- Diet 04/25/19 17:37 Diet: regular Food consistency:: Regular Liquid Consistency:: Regular/Thin - Routine Orders/Code Status Routine Lab Work: - - INR daily times 5 days starting 05/02/19 Code Status: DNRCC - Therapies Weight Bearing: Full weight bearing Physical Therapy: Eval and Treat Occupational Therapy: Eval and Treat - Problem/Diagnosis (1) RSV bronchitis Status: Acute Current Visit: Yes (2) e coli cystitis Status: Acute Current Visit: Yes (3) Severe aortic stenosis Status: Chronic Current Visit: Yes (4) Diastolic CHF Status: Chronic Current Visit: Yes (5) Chronic kidney disease, stage 3 Status: Chronic Current Visit: Yes (6) Hypothyroidism Status: Chronic Current Visit: Yes - Allergies/Procedures Done in Hospital Allergies/Adverse Reactions: Allergies No Known Allergies Allergy (Verified 04/25/19 14:46) Procedures: None - Type of Care/Length of Stay Estimated LOS: Convalescent Care Less Than 30 days Type of Care Needed: Skilled Rehab Potential: Good Prognosis: Good - Additional Orders/Day of Discharge H&P will serve as current which was dated: 04/25/19 Day of Discharge: 04/30/19 - Follow Up Care Primary Care Physician: Nancy Weathers MD [Primary Care Provider] - Please Follow Up With: Nancy Weathers MD
--- NOTE | 2019-04-30 15:28 | CASEMGMT ---
Patient is ready for discharge to [facility]. DANIEL faxed orders to [facility]. Completed convalescent on HENS. DANIEL called [facility] and arranged for patient to get picked up via cot by [facility] at 430. DANIEL notified Bianca at [facility], RN, and left a message for patient's daughter, Patrica. Plan: d/c to [facility] under skilled level of care on a convalescent stay. [facility] transported via cot. Lien PHILLIPS MSW
--- NOTE | 2019-04-30 15:38 | NURSING ---
This RN called and gave report to JB Sanchez at [facility].
--- NOTE | 2019-05-02 12:20 | CASEMGMT ---
SW spoke w/Vivian from [facility] called, she received a referral for palliative care and she has not been able to reach pt's daughter. DANIEL advised Vivian to call [facility] [place], where pt was discharged to, and see if they have another number for the daughter or if they can let daughter know to call [facility] to set up a meeting with palliative care. KOFFI Bentley
--- NOTE | 2019-05-02 17:07 | PCM.DC.SUM ---
Discharge Date and Diagnosis Date of Admission: 04/25/19 Date of Discharge: 04/30/19 - Primary Discharge Diagnosis 1 acute diastolic congestive heart failure-etiology unclear #2 severe aortic stenosis #3 pulmonary hypertension #4 acute tracheobronchitis secondary to RSV #5 acute bilateral lower extremity DVT #6 chronic kidney disease stage III #7 E. coli cystitis #8 acute debility - Secondary Discharge Diagnosis Chronic Problems Severe aortic stenosis (Chronic) Diastolic CHF (Chronic) Chronic kidney disease, stage 3 (Chronic) Macular degeneration (Chronic) Hypothyroidism (Chronic) Hospital Course and Treatment Operations: None Procedures: None Summary of Care Provided: The patient is a 83 year old F was seen in the emergency room at [facility] with a chief plan of shortness of breath. Work-up in the emergency room included a chest x-ray which showed a progression of clearing of a left lower lobe atelectasis or infiltrate that is been noted on a previous chest x-ray. Patient had been admitted to the hospital early in April 2019 for CHF exacerbation. CBC was unremarkable, chemistry profile showed a BUN of 32, creatinine of 1.49, and her beta natruretic peptide was 2955. Patient became dyspneic on ambulation. Patient had a venous duplex study of her lower extremities which showed bilateral VTE. Patient was felt to have an exacerbation of chronic diastolic CHF and bilateral VTE, she was admitted to PCU, placed on anticoagulation and given IV Lasix. Patient was seen by PT and OT and was felt to benefit from inpatient [facility] services. Patient agreed to go short-term to a ch[facility] facility. Other diagnosis included RSV tracheobronchitis and E. coli cystitis during her hospitalization. On 04/30/2019, patient was seen and examined: On examination she appeared in good health and spirits. Vital signs as documented. Skin warm and dry and without overt rashes. Neck without JVD. Lungs clear. Heart exam notable for regular rhythm, normal sounds and absence of murmurs, rubs or gallops. Abdomen unremarkable and without evidence of organomegaly, masses, or abdominal aortic enlargement. Extremities nonedematous. Neuro: Cranial nerves II through XII are grossly intact, no focal motor deficits were noted, sensation to light touch and pinprick is intact. Psych: Patient is alert and oriented x3, she does not appear anxious or depressed On 04/30/2019, patient was seen and examined and felt to be in stable condition for transfer to ch[facility] facility for short-term inpatient rehab services. - Physical Exam Vitals/I&O's: Vital Signs Temp Pulse Resp BP Pulse Ox 97.4 F L 105 H 18 101/57 L 94 04/30/19 15:17 04/30/19 15:17 04/30/19 15:17 04/30/19 15:17 04/30/19 15:17 Oxygen Flow Rate (L/min) 1 Oxygen Delivery Method Room Air Weight: 58.9 kg Body Mass Index (BMI) 21.7 Intake and Output for Last 24 Hours 04/30/19 05/01/19 05/02/19 23:59 23:59 23:59 Intake Total 400 / 400 Balance 400 / 400 Microbiology Past 72 Hours 04/25/19 18:40 Blood Culture (Wb) - Anticubital Right Blood Culture - Final No growth in 5 days. 04/25/19 18:30 Blood Culture (Wb) - Left Forearm Blood Culture - Final No growth in 5 days. Home Medications: Medications to take at Discharge Furosemide [Lasix] 40 mg PO DAILY 04/12/19 Levothyroxine [Synthroid] 150 mcg PO DAILY@0600 #30 tab 04/14/19 Warfarin [Coumadin] 2 mg PO DAILY@1700 #30 tab 04/14/19 Spironolactone 50 mg PO DAILY 04/25/19 Acetaminophen [Tylenol Tablet] 650 mg PO Q6H PRN PRN tab 04/30/19 Albuterol Aerosols [Ventolin Aerosols] 2.5 mg INHALATION Q2H PRN PRN vial.neb. 04/30/19 Cefadroxil [Duricef] 500 mg PO BID #10 cap 04/30/19 Polyethylene Glycol 3350 [Miralax] 17 gm PO DAILY packet 04/30/19 Following Prescrptions Were Given to Patient: Cefadroxil [Duricef] 500 mg PO BID #10 cap Primary Care Physician: Nancy Weathers MD [Primary Care Provider] - Please Follow Up With: Nancy Weathers MD Disposition: Nursing Home facility Minutes spent on discharge:: 34 Patient Condition:: Stable Medical Necessity - Tobacco Use Smoking Status: Never smoker Tobacco Use: Secondhand Meaningful Use Info Meaningful Use Diagnoses (Choose all that apply): CHF - CHF LAVON/ARB ordered at discharge?: No Reason LAVON/ARB not ordered?: Allergy - Patient has diastolic CHF-not appropriate for LAVON or ARB administration Documented LVEF (%): 70 Code Visit Inpatient E&M: 78232 Disch Hosp
--- NOTE | 2019-05-13 10:16 | CCN.REFER ---
CCN referral on hold as patient is at [facility] at this time. DTR will contact this nurse if patient goes home and is in need of CCN.
== END 2019-04-30 17:11 | disposition skilled nursing facility (03) | DRG 292 ==
LOC: ED 16:38 → PCU 17:14
PROVIDERS: Nurse Practitioner Family; Admitting Provider Internal Medicine; Emergency Provider Emergency Medicine; Family Provider Family Medicine; PCP Family Medicine; Visit Provider Internal Medicine
DX: I50.33 Acute on chronic diastolic (congestive) heart failure (principal); N30.00 Acute cystitis without hematuria; J20.5 Acute bronchitis due to respiratory syncytial virus; I27.20 Pulmonary hypertension, unspecified; I82.463 Acute embolism and thrombosis of calf muscular vein, bilateral; I35.0 Nonrheumatic aortic (valve) stenosis; N18.3 Chronic kidney disease, stage 3 (moderate); R79.1 Abnormal coagulation profile; Z79.01 Long term (current) use of anticoagulants; B96.20 Unspecified Escherichia coli [E. coli] as the cause of diseases classified elsewhere; Z66 Do not resuscitate; E03.9 Hypothyroidism, unspecified; Z77.22 Contact with and (suspected) exposure to environmental tobacco smoke (acute) (chronic); R53.81 Other malaise; H35.30 Unspecified macular degeneration
CPT/HCPCS: 36415; 71045; 71046; 78582; 80048; 80076; 81001; 83605; 83735; 83880; 84484; 85025; 85610; 87040; 87070; 87086; 87088; 87186; 87205; 87449; 87633; 87641; 87804; 93005; 93970; 94640; 94762; 97110; 97116; 97162; 97165; 97530; 99251; 99284; A9540; A9567; J7040; J7050; J7120; A4216; G0463; J1940

== ENCOUNTER → 2019-06-03 | Outpatient (CLI) | payer MEDICARE, SELFPAY ==
[2019-04-25 17:07] VITALS: BMI 21.7
[2019-06-03 12:42] LABS: Anion Gap 7 (5-15); BUN 30 mg/dL (7-18); BUN/Creat Ratio 19.5 RATIO (10-20); Calcium,Total 8.9 mg/dL (8.5-10.1); Chloride 98 mmol/L (98-107); Creatinine, Serum 1.54 mg/dL (0.55-1.02); EST Glomerular Filtration Rate 34 mL/min (>60); Est Glom Filt Rate - Afr Amer 41 mL/min (>60); Glucose 101 mg/dL (74-106); Potassium 3.6 mmol/L (3.5-5.1); Sodium Level 135 mmol/L (136-145)
== END | disposition home or self-care (01) ==
LOC: MFPLAB 10:01
PROVIDERS: PCP Family Medicine; Visit Provider Family Medicine
DX: I50.9 Heart failure, unspecified (principal)
CPT/HCPCS: 36415; 80048

== ENCOUNTER → 2019-06-18 | Outpatient (CLI) | payer MEDICARE, SELFPAY ==
[2019-04-25 17:07] VITALS: BMI 21.7
[2019-06-18 18:36] LABS: BUN 37 mg/dL (7-18); Creatinine, Serum 1.55 mg/dL (0.55-1.02); EST Glomerular Filtration Rate 34 mL/min (>60); Glucose 98 mg/dL (74-106)
[2019-06-18 18:37] LABS: Anion Gap 7 (5-15); BUN/Creat Ratio 23.9 RATIO (10-20); Calcium,Total 8.7 mg/dL (8.5-10.1); Chloride 97 mmol/L (98-107); Est Glom Filt Rate - Afr Amer 41 mL/min (>60); Potassium 4.4 mmol/L (3.5-5.1); Sodium Level 135 mmol/L (136-145)
== END | disposition home or self-care (01) ==
LOC: MFPLAB 15:23
PROVIDERS: PCP Family Medicine; Visit Provider Family Medicine
DX: R60.9 Edema, unspecified (principal)
CPT/HCPCS: 36415; 80048